=== PATIENT | female | born 1970 | race Two or more races ===

== ENCOUNTER 2019-04-02 22:56 | Inpatient (IN) | payer MEDICAID ==
[~2019-04-02] VITALS: Ht 157.5 cm; Wt 75.7 kg
[2019-04-02 23:00] VITALS: BP 116/75
[2019-04-02] MEDS ORDERED: Thiamine HCl 100 MG in D5W 55 ML IV ONE (23:00)
--- NOTE | 2019-04-02 23:00 | NUR ---
ED Nurse Note: pt brought in by [facility] from home c/c etoh intoxication, per ems report pt's called 911 because she was severely intoxicated. upon arrival noted pt drowsy unable to stay awake more than 30 sec, slurred speech noted. pt AA&ox3, gcs=15, skin warm and dry, noted dried scabs and contusion on right hip area, sinus rhythm on cardiac exercise specialist, abd round and umbilical hernia noted. will cont monitor.
--- NOTE | 2019-04-02 23:01 | NUR ---
ED Nurse Note: ERMD notified that pt is compliant and very drowsy, doesn't need restraints, pt able to tolerate iv access. will cont monitor. safety precautions in place.
[2019-04-02 23:28] LABS: BASOPHILS % (AUTO) 1.7 % (0.0-2.0); EOSINOPHILS % (AUTO) 3.1 % (0.0-3.0); HEMATOCRIT 26.5 % (37.0-47.0); HEMOGLOBIN 8.6 G/DL (12.0-16.0); LYMPHOCYTES % (AUTO) 18.4 % (20.0-45.0); MEAN CORPUSCULAR VOLUME 79 FL (80-99); MONOCYTES % (AUTO) 5.4 % (1.0-10.0); NEUTROPHILS % (AUTO) 71.4 % (45.0-75.0); PLATELET COUNT 198 K/UL (150-450); RED BLOOD COUNT 3.35 M/UL (4.20-5.40); RED CELL DISTRIBUTION WIDTH 16.6 % (11.6-14.8); WHITE BLOOD COUNT 6.4 K/UL (4.8-10.8)
[2019-04-02 23:35] LABS: INR 1.3 (0.9-1.1)
[2019-04-02 23:39] LABS: ANION GAP 9 mmol/L (5-15); BLOOD UREA NITROGEN 5 mg/dL (7-18); CALCIUM 6.5 MG/DL (8.5-10.1); CARBON DIOXIDE 21 MMOL/L (21-32); CHLORIDE 104 MMOL/L (98-107); CREATININE 0.6 MG/DL (0.55-1.30); POTASSIUM 3.8 MMOL/L (3.5-5.1); SODIUM 134 MMOL/L (136-145)
[2019-04-02 23:44] LABS: PHOSPHORUS 3.6 MG/DL (2.5-4.9)
[2019-04-02 23:49] LABS: ALANINE AMINOTRANSFERASE 26 U/L (12-78); ALBUMIN 1.2 G/DL (3.4-5.0); ALBUMIN/GLOBULIN RATIO 0.4 (1.0-2.7); ALKALINE PHOSPHATASE 426 U/L (46-116); ASPARTATE AMINO TRANSFERASE 69 U/L (15-37); BILIRUBIN,TOTAL 1.1 MG/DL (0.2-1.0); CREATINE KINASE 110 U/L (26-308)
[2019-04-02 23:51] LABS: BILIRUBIN,DIRECT 0.7 MG/DL (0.0-0.3)
[2019-04-03] VITALS (8 sets, daily range): BP systolic 99–158; BP diastolic 68–86
--- NOTE | 2019-04-03 | NUR ---
ED Nurse Note: pt void x 1, cleand and changed into new gown, pt given warm blanket for comfort.
[2019-04-03 00:02] LABS: APPEARANCE,URINE CLEAR; BILIRUBIN, URINE NEGATIVE (NEGATIVE); GLUCOSE, URINE (UA) NEGATIVE (NEGATIVE); KETONES,URINE NEGATIVE (NEGATIVE); LEUKOCYTE ESTERASE ,URINE NEGATIVE (NEGATIVE); NITRITE,URINE NEGATIVE (NEGATIVE); PH,URINE 6.5 (4.5-8.0); PROTEIN,URINE 2+ (NEGATIVE); UROBILINOGEN,URINE NORMAL MG/DL (0.0-1.0)
[2019-04-03 00:07] LABS: COLOR,URINE YELLOW
--- NOTE | 2019-04-03 00:26 | Diagnostic Imaging Report ---
EXAM: CT Head Without Intravenous Contrast CLINICAL HISTORY: ALOC TECHNIQUE: Axial computed tomography images of the head/brain without intravenous contrast. CTDI is 70 mGy and DLP is 1393 mGy-cm. One or more of the following dose reduction techniques were used: automated exposure control, adjustment of the mA and/or kV according to patient size, use of iterative reconstruction technique. COMPARISON: 02/20/2018 CT head FINDINGS: Brain: No hemorrhage or mass effect. Ventricles: No hydrocephalus. Mild cerebral volume loss. Bones/joints: Unremarkable. Soft tissues: Unremarkable. Sinuses: Unremarkable. Mastoid air cells: Clear. IMPRESSION: No acute hemorrhage, hydrocephalus, or mass effect.
--- NOTE | 2019-04-03 00:40 | Emergency Room Report ---
History of Present Illness General Chief Complaint: Alcohol Intoxication Source: EMS Present Illness HPI EMS was called by the patient's . Apparently she is been drinking tonight. She fell and hit her head. She has been less responsive. She has a history of liver cirrhosis. Accu-Chek in the field was normal. Also EKG was done that was unremarkable. She is moving all fours but is lethargic. Patient is unable to answer questions at this time. The patient was seen here February 10 after sustaining a scalp laceration after drinking alcohol. CT was negative at that time. The patient eloped after the CAT scan. Allergies: Coded Allergies: No Known Allergies (Unverified , 02/20/18) Patient History Limited by: medical condition Past Medical History: see triage record, old chart reviewed Social History: Reports: alcohol use Social History Narrative Last Menstrual Period: n/a Reviewed Nursing Documentation: PMH: Agreed; PSxH: Agreed Nursing Documentation-PMH Past Medical History: No History, Except For Hx Hypertension: Yes Review of Systems All Other Systems: limited Physical Exam Vital Signs Date Time Temp Pulse Resp B/P (MAP) Pulse Ox O2 Delivery O2 Flow Rate FiO2 04/02/19 22:51 98.4 96 18 110/67 (81) 96 Room Air Sp02 EP Interpretation: reviewed, normal General Appearance: no apparent distress, lethargic Head: normocephalic, other - See below Eyes: bilateral eye PERRL, bilateral eye abnormal EOM, bilateral eye Scleral Injection ENT: moist mucus membranes Neck: supple Respiratory: lungs clear, normal breath sounds Cardiovascular #1: regular rate, rhythm, edema - Trace bilaterally Cardiovascular #2: 2+ radial (L) Gastrointestinal: non tender, soft, decreased bowel sounds, overweight Genitourinary: no CVA tenderness Musculoskeletal: normal range of motion Neurologic: sensory intact, no Babinski, other - Positive gag, moving all 4, withdraws to painful stimulus, nystagmus Psychiatric: other - Lethargic Reflexes: 1+ knee (R), 1+ knee (L) Skin: Ecchymosis/Bruising - Right scalp, other - Intertrigo left breast Procedures Critical Care Time Critical Care Time Total Critical Care Time: 60 min bedside evaluation and treatment excludes procedures (EKG). Reason for critical care: Stupor, non-STEMI, right pleural effusion and possible infiltrate, head injury Possible complications: hypotension, hypertension, CO, shock, arrhythmias, metabolic acidosis, end organ damage, respiratory failure. Interventions: Repeated neurologic evaluations, evaluation and treatment of non- STEMI, antibiotics for right lung abnormality Course: Patient presented with lethargy with evidence of head injury and possible alcohol ingestion with a history of cirrhosis. Evaluation with CT of the head excluded bleed. Thiamine is ordered. Lab called with positive troponin. Aspirin administered. Due to vital signs and abnormal INR other treatment withheld. Repeat evaluations revealed improving mentation. Abnormal x-ray led to blood cultures and administration of antibiotics. Patient admitted to stepdown unit. Consultations: nursing staff, EMS, admitting physician Performed by: Dr. Vazquez Tolerated well condition = serious Medical Decision Making Diagnostic Impression: Primary Impression: Altered level of consciousness Additional Impressions: Elevated troponin Right pulmonary infiltrate on CXR Anemia Qualified Codes: D64.9 - Anemia, unspecified Acute alcoholic intoxication Qualified Codes: F10.929 - Alcohol use, unspecified with intoxication, unspecified Serum ammonia increased Intertrigo Head contusion Qualified Codes: S00.03XA - Contusion of scalp, initial encounter Pleural effusion, right History of cirrhosis Hypocalcemia Hypomagnesemia ER Course Patient presents with stupor and lethargy with alleged alcohol ingestion and history of cirrhosis. Is also evidence of a head injury. Patient will be evaluated with EKG, chest x-ray and labs. Also CT the head will be performed. Patient is placed on a threat monitoring analyst. None behavioral restraints are ordered as she is not responsible at this time for her behavior and is high fall risk. Thiamine is ordered. EKG without injury. Prolonged QT interval. No acute changes. CXR with R effusion/infiltrate. Labs with normal white count but anemia. Platelet count is normal. INR slightly prolonged at 1.3. Blood alcohol is 447. Lab called with + troponin (0.13). Aspirin ordered. Unable to give nitrates or beta blockers due to low BP. Also heparin withheld due to increased INR. BC and antibiotic ordered. Type and Rh ordered as anemia. Patient more awake but still slurred and lethargic. Ammonia slightly elevated. Due to the risk of aspiration lactulose is withheld the moment. The patient may be at risk for alcohol withdrawal and DTs. Consideration of replacement of magnesium and checking ionized calcium in the future. Patient admitted to stepdown unit for the positive troponin. There is no evidence of STEMI at this time. Her mentation is improved but she still is lethargic. Laboratory Tests Test 04/02/19 23:05 04/03/19 01:30 White Blood Count 6.4 K/UL (4.8-10.8) Red Blood Count 3.35 M/UL (4.20-5.40) L Hemoglobin 8.6 G/DL (12.0-16.0) L Hematocrit 26.5 % (37.0-47.0) L Mean Corpuscular Volume 79 FL (80-99) L Mean Corpuscular Hemoglobin 25.7 PG (27.0-31.0) L Mean Corpuscular Hemoglobin Concent 32.5 G/DL (32.0-36.0) Red Cell Distribution Width 16.6 % (11.6-14.8) H Platelet Count 198 K/UL (150-450) Mean Platelet Volume 5.7 FL (6.5-10.1) L Neutrophils (%) (Auto) 71.4 % (45.0-75.0) Lymphocytes (%) (Auto) 18.4 % (20.0-45.0) L Monocytes (%) (Auto) 5.4 % (1.0-10.0) Eosinophils (%) (Auto) 3.1 % (0.0-3.0) H Basophils (%) (Auto) 1.7 % (0.0-2.0) Prothrombin Time 14.1 SEC (9.30-11.50) H Prothrombin Time INR 1.3 (0.9-1.1) H PTT 26 SEC (23-33) Urine Color Yellow Urine Appearance Clear Urine pH 6.5 (4.5-8.0) Urine Specific [place] 1.010 (1.005-1.035) Urine Protein 2+ (NEGATIVE) H Urine Glucose (UA) Negative (NEGATIVE) Urine Ketones Negative (NEGATIVE) Urine Blood 2+ (NEGATIVE) H Urine Nitrite Negative (NEGATIVE) Urine Bilirubin Negative (NEGATIVE) Urine Urobilinogen Normal MG/DL (0.0-1.0) Urine Leukocyte Esterase Negative (NEGATIVE) Urine RBC 2-4 /HPF (0 - 2) H Urine WBC 0-2 /HPF (0 - 2) Urine Squamous Epithelial Cells Few /LPF (NONE/OCC) Urine Bacteria None /HPF (NONE) Sodium Level 134 MMOL/L (136-145) L Potassium Level 3.8 MMOL/L (3.5-5.1) Chloride Level 104 MMOL/L (98-107) Carbon Dioxide Level 21 MMOL/L (21-32) Anion Gap 9 mmol/L (5-15) Blood Urea Nitrogen 5 mg/dL (7-18) L Creatinine 0.6 MG/DL (0.55-1.30) Estimate Glomerular Filtration Rate > 60 mL/min (>60) Glucose Level 108 MG/DL (74-106) H Calcium Level 6.5 MG/DL (8.5-10.1) L Phosphorus Level 3.6 MG/DL (2.5-4.9) Magnesium Level 1.4 MG/DL (1.8-2.4) L Total Bilirubin 1.1 MG/DL (0.2-1.0) H Direct Bilirubin 0.7 MG/DL (0.0-0.3) H Aspartate Amino Transferase (AST) 69 U/L (15-37) H Alanine Aminotransferase (ALT) 26 U/L (12-78) Alkaline Phosphatase 426 U/L (46-116) H Total Creatine Kinase 110 U/L (26-308) Troponin I 0.130 ng/mL (0.000-0.056) Total Protein 4.5 G/DL (6.4-8.2) L Albumin 1.2 G/DL (3.4-5.0) L Globulin 3.3 g/dL Albumin/Globulin Ratio 0.4 (1.0-2.7) L Lipase 285 U/L (73-393) Salicylates Level < 0.2 ug/mL (2.8-20) L Urine Opiates Screen Negative (NEGATIVE) Acetaminophen Level 5 MCG/ML (10-30) L Urine Barbiturates Screen Negative (NEGATIVE) Phencyclidine (PCP) Screen Negative (NEGATIVE) Urine Amphetamines Screen Negative (NEGATIVE) Urine Benzodiazepines Screen Negative (NEGATIVE) Urine Cocaine Screen Negative (NEGATIVE) Urine Marijuana (THC) Screen Negative (NEGATIVE) Serum Alcohol 447 mg/dL Ammonia 47 umol/L (11-32) H EKG Diagnostic Results Rate: normal Rhythm: NSR ST Segments: no acute changes - Increased QT interval of 495 ms ASA given to the pt in ED: Yes Rhythm Strip Diag. Results EP Interpretation: yes Rhythm: NSR, no PVC's, no ectopy Chest X-Ray Diagnostic Results Chest X-Ray Diagnostic Results : Chest X-Ray Ordered: Yes # of Views/Limited/Complete: 1 View Indication: Other EP Interpretation: Yes Interpretation: no pneumothorax, other - R effusion vs infiltrate CT/MRI/US Diagnostic Results CT/MRI/US Diagnostic Results : Imaging Test Ordered: head Impression no bleed Last Vital Signs Date Time Temp Pulse Resp B/P (MAP) Pulse Ox O2 Delivery O2 Flow Rate FiO2 04/03/19 03:00 98.7 82 18 119/68 95 Room Air Status: improved Disposition: ADMITTED INPATIENT Condition: Serious Referrals: NOT CHOSEN IPA/,REFERRING (PCP) Marcus Vazquez MD Apr 03, 2019 00:40
[2019-04-03] MEDS ORDERED: UNOBMED (00:42)
--- NOTE | 2019-04-03 00:43 | Diagnostic Imaging Report ---
EXAM: XR Chest, 1 View CLINICAL HISTORY: ALOC TECHNIQUE: Frontal view of the chest. COMPARISON: No relevant prior studies available. IMPRESSION: Mild cardiomegaly. Moderate right pleural effusion. Increased opacity in the right lung, possibly infection, edema, or atelectasis.
[2019-04-03] MEDS ORDERED: Piperacillin/Tazobactam 3.375 GM in NS 110 ML IVPB ONE (00:45)
--- NOTE | 2019-04-03 01:20 | NUR ---
ED Nurse Note: pt sleeping at this time, vss, sinus rhythm on secured entrance monitor, resp even and unlabored on RA, will cont monitor.
--- NOTE | 2019-04-03 03:10 | NUR ---
ED Nurse Note: report given to GLORIA Garcia from SDU.
--- NOTE | 2019-04-03 03:30 | NUR ---
ED Nurse Note: pt transferred to SDU, all belongings sent w/ pt w/ belonging list, care endorsed to GLORIA Garcia and SDU staff, pt iv intact and patent, vss, sinus rhythm on media monitor.
--- NOTE | 2019-04-03 03:55 | NUR ---
Face sheet, dictation and clinicals faxed to Aleida at [facility] at [phone] as requested.
[2019-04-03] MEDS ORDERED: LORazepam Inj 2mg/ml 1ml IV PRN (04:00)
[2019-04-03] MEDS ORDERED: Morphine Sulfate 2mg/ml Inj(IV/IM USE ONLY) IVP PRN ×2 (04:00→07:15)
--- NOTE | 2019-04-03 04:00 | NUR ---
NURSE NOTES: Received report from Savannah CASTRO. Patient admitted from ER via gurney accompanied by RN and vending service technician.originally from home under the care of Dr. Axel Lock admitting diagnosis of ETOH, ALOC, Increase troponin. Patient lethargic, easily arousable to verbal and tactile stimuli. Alert oriented to name. No SOB oxygen saturation 96% Room air. Body assessment done noted with swollen lower legs with +2 pitting edema, generalized skin redness, rashes with dry scab, left breast with redness and rashes, abdominal folds and groins area redness, per patient she have psoriasis. Per patient she fell from home 3 months ago obtained right moore skin discoloration with bump on right moore denies any pain or discomfort. Abdomen distended with bulging navel. no s/s of acute distress noted. Instructed patient to use call light for assistance. bed alarm on. bed locked and in low position. Will continue plan of care.
--- NOTE | 2019-04-03 04:05 | NUR ---
NURSE NOTES: Dr Axel Lock gave orders noted and carried. will call patient in am regarding patient medication list at home patient can't remember what medication she's taking.
[2019-04-03 04:23] LABS: BASOPHILS % (AUTO) 1.3 % (0.0-2.0); EOSINOPHILS % (AUTO) 1.1 % (0.0-3.0); HEMATOCRIT 27.9 % (37.0-47.0); HEMOGLOBIN 8.9 G/DL (12.0-16.0); LYMPHOCYTES % (AUTO) 21.3 % (20.0-45.0); MEAN CORPUSCULAR VOLUME 80 FL (80-99); MONOCYTES % (AUTO) 6.5 % (1.0-10.0); NEUTROPHILS % (AUTO) 69.7 % (45.0-75.0); PLATELET COUNT 215 K/UL (150-450); RED BLOOD COUNT 3.48 M/UL (4.20-5.40); RED CELL DISTRIBUTION WIDTH 16.2 % (11.6-14.8); WHITE BLOOD COUNT 6.3 K/UL (4.8-10.8)
[2019-04-03] MEDS ORDERED: D5 1/2NS 1,000 ML IV SCH (04:30)
[2019-04-03 05:28] LABS: ANION GAP 8 mmol/L (5-15); BLOOD UREA NITROGEN 5 mg/dL (7-18); CALCIUM 6.6 MG/DL (8.5-10.1); CARBON DIOXIDE 21 MMOL/L (21-32); CHLORIDE 103 MMOL/L (98-107); CREATININE 0.6 MG/DL (0.55-1.30); POTASSIUM 3.8 MMOL/L (3.5-5.1); SODIUM 132 MMOL/L (136-145)
[2019-04-03] MEDS ORDERED: Miralax 17gm pkt ORAL PRN (07:15)
[2019-04-03] MEDS ORDERED: Nitroglycerin Subl 0.4mg tab SL PRN (07:15)
--- NOTE | 2019-04-03 07:30 | NUR ---
NURSE NOTES: Received report from Vitaly Zuniga RN. Patient asleep in bed, arousable to shaking, confused. On room air, respirations even and unlabored. Right wrist 20g IV site infusing D51/2NS @ 60 cc/hr, asymptomatic. Bed locked in lowest position with side rails up x 3. All needs attended to. Call light within reach. Will continue to monitor.
--- NOTE | 2019-04-03 07:31 | NUR ---
HAND-OFF: Report given to Zuly CASTRO. Spoke with Aleksandar Rob patient to bring medication list at home. endorsed to am nurse.
[2019-04-03] MEDS ORDERED: Phytonadione 10 MG in D5W 55 ML IVPB SCH (08:00)
[2019-04-03] MEDS: D5 1/2NS 1,000 ML IV SCH ×2 (08:18→20:19)
--- NOTE | 2019-04-03 08:20 | Diagnostic Imaging Report ---
EXAM: XR Right Tibia and Fibula, 2 Views CLINICAL HISTORY: FALL TECHNIQUE: Frontal and lateral views of the right tibia and fibula. COMPARISON: No relevant prior studies available. FINDINGS: Bones/joints: Unremarkable. No acute fracture. No dislocation. Soft tissues: Unremarkable. No radiopaque foreign body. IMPRESSION: Normal right tibia and fibula x-rays.
--- NOTE | 2019-04-03 08:39 | General Progress Note ---
Assessment/Plan Assessment/Plan: Assessment - alcoholic liver disease - abnormal LFT, r/o HCC or obstruction - hepatic encephalopathy - anemia - abdominal distention, presumed ascites Recommendations - lactulose - may need NGT - CT abd /pelvis - PPI - check AFP - d/c BDZ - minimize tylenol - Abx - may need paracentesis Subjective Allergies: Coded Allergies: No Known Allergies (Unverified , 02/20/18) Objective Last 24 Hour Vital Signs Date Time Temp Pulse Resp B/P (MAP) Pulse Ox O2 Delivery O2 Flow Rate FiO2 04/03/19 04:10 Room Air 04/03/19 03:30 98.5 88 18 110/86 98 Room Air 04/03/19 03:00 98.7 82 18 119/68 95 Room Air 04/03/19 02:00 98.9 86 18 110/86 96 Room Air 04/03/19 01:00 98.7 89 18 99/74 100 Room Air 04/03/19 00:00 98.6 89 18 99/74 98 Room Air 04/02/19 23:00 98.4 86 18 116/75 96 Room Air 04/02/19 23:00 86 18 Room Air 04/02/19 22:51 98.4 96 18 110/67 (81) 96 Room Air Intake and Output 04/02/19 04/03/19 19:00 07:00 Intake Total 60 ml Balance 60 ml Intake IV Total 60 ml # Voids 2 # Bowel Movements 2 Laboratory Tests 04/02/19 23:05: White Blood Count 6.4, Red Blood Count 3.35L, Hemoglobin 8.6L, Hematocrit 26.5L , Mean Corpuscular Volume 79L, Mean Corpuscular Hemoglobin 25.7L, Mean Corpuscular Hemoglobin Concent 32.5, Red Cell Distribution Width 16.6H, Platelet Count 198, Mean Platelet Volume 5.7L, Neutrophils (%) (Auto) 71.4, Lymphocytes (%) (Auto) 18.4L, Monocytes (%) (Auto) 5.4, Eosinophils (%) (Auto) 3.1H, Basophils (%) (Auto) 1.7, Prothrombin Time 14.1H, Prothromb Time International Ratio 1.3H, Activated Partial Thromboplast Time 26, Urine Color Yellow, Urine Appearance Clear, Urine pH 6.5, Urine Specific [place] 1.010, Urine Protein 2+H, Urine Glucose (UA) Negative, Urine Ketones Negative, Urine Blood 2+H, Urine Nitrite Negative, Urine Bilirubin Negative, Urine Urobilinogen Normal, Urine Leukocyte Esterase Negative, Urine RBC 2-4H, Urine WBC 0-2, Urine Squamous Epithelial Cells Few, Urine Bacteria None, Sodium Level 134L, Potassium Level 3.8, Chloride Level 104, Carbon Dioxide Level 21, Anion Gap 9, Blood Urea Nitrogen 5L, Creatinine 0.6, Estimat Glomerular Filtration Rate > 60 , Glucose Level 108H, Calcium Level 6.5L, Phosphorus Level 3.6, Magnesium Level 1.4L, Total Bilirubin 1.1H, Direct Bilirubin 0.7H, Aspartate Amino Transf (AST/ SGOT) 69H, Alanine Aminotransferase (ALT/SGPT) 26, Alkaline Phosphatase 426H, Total Creatine Kinase 110, Troponin I 0.130H, Total Protein 4.5L, Albumin 1.2L, Globulin 3.3, Albumin/Globulin Ratio 0.4L, Lipase 285, Salicylates Level < 0.2L , Urine Opiates Screen Negative, Acetaminophen Level 5L, Urine Barbiturates Screen Negative, Phencyclidine (PCP) Screen Negative, Urine Amphetamines Screen Negative, Urine Benzodiazepines Screen Negative, Urine Cocaine Screen Negative, Urine Marijuana (THC) Screen Negative, Serum Alcohol 447 04/03/19 01:30: Ammonia 47H 04/03/19 04:10: White Blood Count 6.3, Red Blood Count 3.48L, Hemoglobin 8.9L, Hematocrit 27.9L , Mean Corpuscular Volume 80, Mean Corpuscular Hemoglobin 25.5L, Mean Corpuscular Hemoglobin Concent 31.7L, Red Cell Distribution Width 16.2H, Platelet Count 215, Mean Platelet Volume 5.8L, Neutrophils (%) (Auto) 69.7, Lymphocytes (%) (Auto) 21.3, Monocytes (%) (Auto) 6.5, Eosinophils (%) (Auto) 1.1, Basophils (%) (Auto) 1.3, Sodium Level 132L, Potassium Level 3.8, Chloride Level 103, Carbon Dioxide Level 21, Anion Gap 8, Blood Urea Nitrogen 5L, Creatinine 0.6, Estimat Glomerular Filtration Rate > 60, Glucose Level 107H, Calcium Level 6.6L, Troponin I 0.132H Height (Feet): 5 Height (Inches): 2.00 Weight (Pounds): 167 Tabitha Sandoval MD Apr 03, 2019 08:39
[2019-04-03] MEDS ORDERED: Isovue-300 100ml vial INJ PRN (08:45)
[2019-04-03] MEDS ORDERED: Pantoprazole Inj IVP SCH (09:00)
--- NOTE | 2019-04-03 09:00 | NUR ---
NURSE NOTES: at bedside, no med list available.
[2019-04-03] MEDS: Piperacillin/Tazobactam 3.375 GM in NS 110 ML IVPB SCH ×2 (10:54→17:00)
[2019-04-03] MEDS: Lactulose 200 GM in Water Sterile For Irrig 1000ml 700 ML IRRIG SCH ×3 (10:54→21:24)
--- NOTE | 2019-04-03 13:00 | History and Physical Report ---
DATE OF ADMISSION: 04/03/2019 TIME SEEN: 10 a.m. CONSULTANTS: 1. Sebas Schneider M.D. 2. Rosemary Wilson M.D. 3. Renato Garvey M.D. 4. Marty Cerna M.D. CHIEF COMPLAINT: Alcohol abuse, cirrhosis, altered mental status, elevated troponin, body rash. BRIEF HISTORY: This is a 48-year-old female, presented to [facility] last night with history of alcohol ingestion and intoxication, very lethargic. The patient was diagnosed as above, slightly elevated troponin, admitted to [facility] for further care. Currently, sedated, lethargic in bed, nonverbal. PAST MEDICAL HISTORY: Includes altered level of consciousness, cirrhosis, alcohol intoxication. PAST SURGICAL HISTORY: Unknown. MEDICATIONS: Include lactulose, pantoprazole, Zosyn, IV fluid, morphine, diphenhydramine, Zofran, and lorazepam. ALLERGIES: Denies. SOCIAL HISTORY: Unable to obtain secondary to the patient's condition. REVIEW OF SYSTEMS: Unavailable. PHYSICAL EXAMINATION: GENERAL: Lethargic, sedated in bed, nonverbal. VITAL SIGNS: Temperature is 98 degrees, pulse 69, respirations 18, blood pressure 132/82. CARDIOVASCULAR: No murmur. LUNGS: Distant and clear. ABDOMEN: Bowel sounds positive. Nontender. Nondistended. EXTREMITIES: No cyanosis, clubbing, or edema. NEUROLOGIC: The patient is flaccid in bed, not following directions. LABORATORY AND DIAGNOSTIC DATA: Labs at this time show hemoglobin and hematocrit 8.9/27, otherwise CBC is normal. BMP shows sodium 132, glucose 107, calcium 6.6. BNP is . Ammonia level 47. INR 1.3, PTT is 26. Urine tox is alcohol 447, otherwise negative. Urinalysis, 2+ blood. ASSESSMENT: 1. Alcohol abuse, intoxication. 2. Cirrhosis. 3. Elevated troponin. 4. Body rash. 5. Anemia. PLAN: 1. ID followup. 2. Antibiotics per Infectious Disease. 3. Detox. 4. Dietary followup. 5. GI followup. 6. PT and dietary evaluation. 7. CBC and BMP in the morning. Axel Lock D.O. DR: VIVIENNE JOB#: [id number] CC:
--- NOTE | 2019-04-03 14:31 | Diagnostic Imaging Report ---
EXAM: US Duplex Bilateral Lower Extremity Veins CLINICAL HISTORY: DVT TECHNIQUE: Real-time duplex ultrasound scan of the bilateral lower extremity veins integrating B-mode two-dimensional vascular structure, Doppler spectral analysis, color flow Doppler imaging and compression. COMPARISON: No relevant prior studies available. FINDINGS: Right deep veins: Unremarkable. No DVT in the right common femoral, femoral, proximal deep femoral or popliteal veins. The veins demonstrate normal color flow, are normally compressible, with normal phasic flow and/or augmentation response. Right superficial veins: Unremarkable. No thrombus in the visualized right great saphenous vein. Left deep veins: Unremarkable. No DVT in the left common femoral, femoral, proximal deep femoral or popliteal veins. The veins demonstrate normal color flow, are normally compressible, with normal phasic flow and/or augmentation response. Left superficial veins: Unremarkable. No thrombus in the visualized left great saphenous vein. Soft tissues: No acute findings. No popliteal cyst. IMPRESSION: Normal bilateral lower extremity duplex venous ultrasound.
--- NOTE | 2019-04-03 15:15 | Cardiology Report ---
APPROVED REPORT EKG Measurement Heart [id number] ND 152P-3 [id number] Normal sinus rhythm Prolonged QT Abnormal ECG
--- NOTE | 2019-04-03 15:54 | Consultation ---
History of Present Illness General Date patient seen: Apr 04, 2019 Chief Complaint: Alcohol Intoxication Present Illness HPI 48 year old female with hx of ETOH abuse, brought in by paramedics because she fell and hit her head. In Er her ETOH level was > 400. Her troionin was postiive and dshe is admitted to [facility]. She has a history of liver cirrhosis. Patient is unable to answer questions at this time. Allergies: Coded Allergies: No Known Allergies (Unverified , 02/20/18) Medication History Miscellaneous Medications Unable to Obtain Medications (Unable To Obtain Meds), (Reported) Patient History Healthcare decision maker Resuscitation status Full Code Advanced Directive on File No Review of Systems All Other Systems: negative except mentioned in HPI Physical Exam General Appearance: WD/WN, no apparent distress, mild distress HEENT: normocephalic, atraumatic Neck: non-tender, normal alignment Respiratory/Chest: lungs clear Breasts: no masses Cardiovascular/Chest: normal peripheral pulses Abdomen: normal bowel sounds, non tender Genitourinary/Rectal: normal genital exam, normal rectal exam Last 24 Hour Vital Signs Date Time Temp Pulse Resp B/P (MAP) Pulse Ox O2 Delivery O2 Flow Rate FiO2 04/03/19 12:00 101 04/03/19 12:00 98.3 93 18 129/79 (96) 97 04/03/19 12:00 Room Air 04/03/19 08:00 98.6 69 18 138/82 (100) 92 04/03/19 08:00 90 04/03/19 08:00 Room Air 04/03/19 04:10 Room Air 04/03/19 03:30 98.5 88 18 110/86 98 Room Air 04/03/19 03:00 98.7 82 18 119/68 95 Room Air 04/03/19 02:00 98.9 86 18 110/86 96 Room Air 04/03/19 01:00 98.7 89 18 99/74 100 Room Air 04/03/19 00:00 98.6 89 18 99/74 98 Room Air 04/02/19 23:00 98.4 86 18 116/75 96 Room Air 04/02/19 23:00 86 18 Room Air 04/02/19 22:51 98.4 96 18 110/67 (81) 96 Room Air Intake and Output 04/02/19 04/03/19 19:00 07:00 Intake Total 60 ml Balance 60 ml Intake IV Total 60 ml # Voids 2 # Bowel Movements 2 Laboratory Tests Test 04/02/19 23:05 04/03/19 01:30 04/03/19 04:10 04/03/19 11:45 White Blood Count 6.4 K/UL (4.8-10.8) 6.3 K/UL (4.8-10.8) Red Blood Count 3.35 M/UL (4.20-5.40) L 3.48 M/UL (4.20-5.40) L Hemoglobin 8.6 G/DL (12.0-16.0) L 8.9 G/DL (12.0-16.0) L Hematocrit 26.5 % (37.0-47.0) L 27.9 % (37.0-47.0) L Mean Corpuscular Volume 79 FL (80-99) L 80 FL (80-99) Mean Corpuscular Hemoglobin 25.7 PG (27.0-31.0) L 25.5 PG (27.0-31.0) L Mean Corpuscular Hemoglobin Concent 32.5 G/DL (32.0-36.0) 31.7 G/DL (32.0-36.0) L Red Cell Distribution Width 16.6 % (11.6-14.8) H 16.2 % (11.6-14.8) H Platelet Count 198 K/UL (150-450) 215 K/UL (150-450) Mean Platelet Volume 5.7 FL (6.5-10.1) L 5.8 FL (6.5-10.1) L Neutrophils (%) (Auto) 71.4 % (45.0-75.0) 69.7 % (45.0-75.0) Lymphocytes (%) (Auto) 18.4 % (20.0-45.0) L 21.3 % (20.0-45.0) Monocytes (%) (Auto) 5.4 % (1.0-10.0) 6.5 % (1.0-10.0) Eosinophils (%) (Auto) 3.1 % (0.0-3.0) H 1.1 % (0.0-3.0) Basophils (%) (Auto) 1.7 % (0.0-2.0) 1.3 % (0.0-2.0) Prothrombin Time 14.1 SEC (9.30-11.50) H Prothromb Time International Ratio 1.3 (0.9-1.1) H Activated Partial Thromboplast Time 26 SEC (23-33) Urine Color Yellow Urine Appearance Clear Urine pH 6.5 (4.5-8.0) Urine Specific [place] 1.010 (1.005-1.035) Urine Protein 2+ (NEGATIVE) H Urine Glucose (UA) Negative (NEGATIVE) Urine Ketones Negative (NEGATIVE) Urine Blood 2+ (NEGATIVE) H Urine Nitrite Negative (NEGATIVE) Urine Bilirubin Negative (NEGATIVE) Urine Urobilinogen Normal MG/DL (0.0-1.0) Urine Leukocyte Esterase Negative (NEGATIVE) Urine RBC 2-4 /HPF (0 - 2) H Urine WBC 0-2 /HPF (0 - 2) Urine Squamous Epithelial Cells Few /LPF (NONE/OCC) Urine Bacteria None /HPF (NONE) Sodium Level 134 MMOL/L (136-145) L 132 MMOL/L (136-145) L Potassium Level 3.8 MMOL/L (3.5-5.1) 3.8 MMOL/L (3.5-5.1) Chloride Level 104 MMOL/L (98-107) 103 MMOL/L (98-107) Carbon Dioxide Level 21 MMOL/L (21-32) 21 MMOL/L (21-32) Anion Gap 9 mmol/L (5-15) 8 mmol/L (5-15) Blood Urea Nitrogen 5 mg/dL (7-18) L 5 mg/dL (7-18) L Creatinine 0.6 MG/DL (0.55-1.30) 0.6 MG/DL (0.55-1.30) Estimat Glomerular Filtration Rate > 60 mL/min (>60) > 60 mL/min (>60) Glucose Level 108 MG/DL (74-106) H 107 MG/DL (74-106) H Calcium Level 6.5 MG/DL (8.5-10.1) L 6.6 MG/DL (8.5-10.1) L Phosphorus Level 3.6 MG/DL (2.5-4.9) Magnesium Level 1.4 MG/DL (1.8-2.4) L Total Bilirubin 1.1 MG/DL (0.2-1.0) H Direct Bilirubin 0.7 MG/DL (0.0-0.3) H Aspartate Amino Transf (AST/SGOT) 69 U/L (15-37) H Alanine Aminotransferase (ALT/SGPT) 26 U/L (12-78) Alkaline Phosphatase 426 U/L (46-116) H Total Creatine Kinase 110 U/L (26-308) Troponin I 0.130 ng/mL (0.000-0.056) 0.132 ng/mL (0.000-0.056) 0.115 ng/mL (0.000-0.056) Total Protein 4.5 G/DL (6.4-8.2) L Albumin 1.2 G/DL (3.4-5.0) L Globulin 3.3 g/dL Albumin/Globulin Ratio 0.4 (1.0-2.7) L Lipase 285 U/L (73-393) Salicylates Level < 0.2 ug/mL (2.8-20) L Urine Opiates Screen Negative (NEGATIVE) Acetaminophen Level 5 MCG/ML (10-30) L Urine Barbiturates Screen Negative (NEGATIVE) Phencyclidine (PCP) Screen Negative (NEGATIVE) Urine Amphetamines Screen Negative (NEGATIVE) Urine Benzodiazepines Screen Negative (NEGATIVE) Urine Cocaine Screen Negative (NEGATIVE) Urine Marijuana (THC) Screen Negative (NEGATIVE) Serum Alcohol 447 mg/dL Ammonia 47 umol/L (11-32) H Height (Feet): 5 Height (Inches): 2.00 Weight (Pounds): 167 Medications Current Medications Medications (Trade) Dose Ordered Sig/Rita Route PRN Reason Start Time Stop Time Status Last Admin Dose Admin Acetaminophen (Tylenol) 650 mg Q12H PRN ORAL fever (T>100.5F) 04/03/19 08:45 05/03/19 08:44 Barium Sulfate (Readi-Cat 2) 450 ml NOW PRN ORAL Radiology Procedure 04/03/19 08:45 04/05/19 08:31 Dextrose (Dextrose 50%) 25 ml Q30MIN PRN IV Hypoglycemia 04/03/19 07:15 05/03/19 07:14 Dextrose (Dextrose 50%) 50 ml Q30MIN PRN IV Hypoglycemia 04/03/19 07:15 05/03/19 07:14 Dextrose/Sodium Chloride 1,000 ml @ 75 mls/hr [id number] IV 04/03/19 08:00 05/03/19 07:59 04/03/19 08:18 Diphenhydramine HCl (Benadryl) 25 mg Q6H PRN ORAL Itching/Pruritis 04/03/19 07:15 05/03/19 07:14 Iopamidol (Isovue-300 100ml) 100 ml NOW PRN INJ Radiology Procedure 04/03/19 08:45 04/05/19 08:44 Lactulose 200 gm/ Sterile Water 125 ml @ 0 mls/hr Q6H IRRIG 04/03/19 10:00 04/05/19 09:59 04/03/19 10:54 Morphine Sulfate (Morphine Sulfate) 2 mg EVERY 4 HOURS PRN IVP severe Pain (Pain Scale 7-10) 04/03/19 07:15 04/10/19 07:14 Morphine Sulfate (Morphine Sulfate) 2 mg Q4H PRN IVP For Pain 04/03/19 04:00 04/10/19 03:59 Nitroglycerin (Ntg) 0.4 mg Q5M X 3 DOSES PRN SL Prn Chest Pain 04/03/19 07:15 05/03/19 07:14 Ondansetron HCl (Zofran) 4 mg Q6H PRN IVP Nausea & Vomiting 04/03/19 07:15 05/03/19 07:14 Pantoprazole (Protonix) 40 mg DAILY IVP 04/03/19 09:00 05/03/19 08:59 04/03/19 09:25 Piperacillin Sod/ Tazobactam Sod 3.375 gm/Sodium Chloride 110 ml @ 27.5 mls/hr Q8HR@0100,0900,1700 IVPB 04/03/19 09:00 04/10/19 08:59 04/03/19 10:54 Polyethylene Glycol (Miralax) 17 gm HSPRN PRN ORAL Constipation 04/03/19 07:15 05/03/19 07:14 Assessment/Plan Problem List: (1) History of cirrhosis ICD Codes: Z87.19 - Personal history of other diseases of the digestive system SNOMED: 424036347 (2) Acute alcoholic intoxication ICD Codes: F10.929 - Alcohol use, unspecified with intoxication, unspecified SNOMED: 58790880 Qualifiers: Qualified Codes: F10.929 - Alcohol use, unspecified with intoxication, unspecified (3) Altered level of consciousness ICD Codes: R40.4 - Transient alteration of awareness SNOMED: 7381755, 587705981 Assessment/Plan: symptomatic treatment iv fluids ativan Rosemary Camara MD Apr 03, 2019 15:54
[2019-04-03] MEDS ORDERED: NS 275ml ONE (16:43)
[2019-04-03] MEDS ORDERED: 1/2 NS 1000ml IV ONE (16:43)
[2019-04-03] MEDS ORDERED: Tubing IV Secondary IV ONE (16:43)
--- NOTE | 2019-04-03 19:05 | NUR ---
HAND-OFF: Report given to Cornelia Lennon RN.
--- NOTE | 2019-04-03 19:15 | NUR ---
NURSE NOTES: Received patient from GLORIA Caruso. Will continue plan of care.
--- NOTE | 2019-04-03 19:24 | Cardiac Electrophysiology PN ---
Subjective Subjective [id number] Objective Last 24 Hour Vital Signs Date Time Temp Pulse Resp B/P (MAP) Pulse Ox O2 Delivery O2 Flow Rate FiO2 04/03/19 16:00 Room Air 04/03/19 16:00 97.8 80 18 132/83 (99) 93 04/03/19 15:20 101 04/03/19 12:00 101 04/03/19 12:00 98.3 93 18 129/79 (96) 97 04/03/19 12:00 Room Air 04/03/19 08:00 98.6 69 18 138/82 (100) 92 04/03/19 08:00 90 04/03/19 08:00 Room Air 04/03/19 04:10 Room Air 04/03/19 03:30 98.5 88 18 110/86 98 Room Air 04/03/19 03:00 98.7 82 18 119/68 95 Room Air 04/03/19 02:00 98.9 86 18 110/86 96 Room Air 04/03/19 01:00 98.7 89 18 99/74 100 Room Air 04/03/19 00:00 98.6 89 18 99/74 98 Room Air 04/02/19 23:00 98.4 86 18 116/75 96 Room Air 04/02/19 23:00 86 18 Room Air 04/02/19 22:51 98.4 96 18 110/67 (81) 96 Room Air Intake and Output 04/02/19 04/03/19 18:59 06:59 Intake Total 60 ml Balance 60 ml IV Total 60 ml # Voids 2 # Bowel Movements 2 Laboratory Tests Test 04/02/19 23:05 04/03/19 01:30 04/03/19 04:10 04/03/19 11:45 White Blood Count 6.4 K/UL (4.8-10.8) 6.3 K/UL (4.8-10.8) Red Blood Count 3.35 M/UL (4.20-5.40) L 3.48 M/UL (4.20-5.40) L Hemoglobin 8.6 G/DL (12.0-16.0) L 8.9 G/DL (12.0-16.0) L Hematocrit 26.5 % (37.0-47.0) L 27.9 % (37.0-47.0) L Mean Corpuscular Volume 79 FL (80-99) L 80 FL (80-99) Mean Corpuscular Hemoglobin 25.7 PG (27.0-31.0) L 25.5 PG (27.0-31.0) L Mean Corpuscular Hemoglobin Concent 32.5 G/DL (32.0-36.0) 31.7 G/DL (32.0-36.0) L Red Cell Distribution Width 16.6 % (11.6-14.8) H 16.2 % (11.6-14.8) H Platelet Count 198 K/UL (150-450) 215 K/UL (150-450) Mean Platelet Volume 5.7 FL (6.5-10.1) L 5.8 FL (6.5-10.1) L Neutrophils (%) (Auto) 71.4 % (45.0-75.0) 69.7 % (45.0-75.0) Lymphocytes (%) (Auto) 18.4 % (20.0-45.0) L 21.3 % (20.0-45.0) Monocytes (%) (Auto) 5.4 % (1.0-10.0) 6.5 % (1.0-10.0) Eosinophils (%) (Auto) 3.1 % (0.0-3.0) H 1.1 % (0.0-3.0) Basophils (%) (Auto) 1.7 % (0.0-2.0) 1.3 % (0.0-2.0) Prothrombin Time 14.1 SEC (9.30-11.50) H Prothromb Time International Ratio 1.3 (0.9-1.1) H Activated Partial Thromboplast Time 26 SEC (23-33) Urine Color Yellow Urine Appearance Clear Urine pH 6.5 (4.5-8.0) Urine Specific [place] 1.010 (1.005-1.035) Urine Protein 2+ (NEGATIVE) H Urine Glucose (UA) Negative (NEGATIVE) Urine Ketones Negative (NEGATIVE) Urine Blood 2+ (NEGATIVE) H Urine Nitrite Negative (NEGATIVE) Urine Bilirubin Negative (NEGATIVE) Urine Urobilinogen Normal MG/DL (0.0-1.0) Urine Leukocyte Esterase Negative (NEGATIVE) Urine RBC 2-4 /HPF (0 - 2) H Urine WBC 0-2 /HPF (0 - 2) Urine Squamous Epithelial Cells Few /LPF (NONE/OCC) Urine Bacteria None /HPF (NONE) Sodium Level 134 MMOL/L (136-145) L 132 MMOL/L (136-145) L Potassium Level 3.8 MMOL/L (3.5-5.1) 3.8 MMOL/L (3.5-5.1) Chloride Level 104 MMOL/L (98-107) 103 MMOL/L (98-107) Carbon Dioxide Level 21 MMOL/L (21-32) 21 MMOL/L (21-32) Anion Gap 9 mmol/L (5-15) 8 mmol/L (5-15) Blood Urea Nitrogen 5 mg/dL (7-18) L 5 mg/dL (7-18) L Creatinine 0.6 MG/DL (0.55-1.30) 0.6 MG/DL (0.55-1.30) Estimat Glomerular Filtration Rate > 60 mL/min (>60) > 60 mL/min (>60) Glucose Level 108 MG/DL (74-106) H 107 MG/DL (74-106) H Calcium Level 6.5 MG/DL (8.5-10.1) L 6.6 MG/DL (8.5-10.1) L Phosphorus Level 3.6 MG/DL (2.5-4.9) Magnesium Level 1.4 MG/DL (1.8-2.4) L Total Bilirubin 1.1 MG/DL (0.2-1.0) H Direct Bilirubin 0.7 MG/DL (0.0-0.3) H Aspartate Amino Transf (AST/SGOT) 69 U/L (15-37) H Alanine Aminotransferase (ALT/SGPT) 26 U/L (12-78) Alkaline Phosphatase 426 U/L (46-116) H Total Creatine Kinase 110 U/L (26-308) Troponin I 0.130 ng/mL (0.000-0.056) 0.132 ng/mL (0.000-0.056) 0.115 ng/mL (0.000-0.056) Total Protein 4.5 G/DL (6.4-8.2) L Albumin 1.2 G/DL (3.4-5.0) L Globulin 3.3 g/dL Albumin/Globulin Ratio 0.4 (1.0-2.7) L Lipase 285 U/L (73-393) Salicylates Level < 0.2 ug/mL (2.8-20) L Urine Opiates Screen Negative (NEGATIVE) Acetaminophen Level 5 MCG/ML (10-30) L Urine Barbiturates Screen Negative (NEGATIVE) Phencyclidine (PCP) Screen Negative (NEGATIVE) Urine Amphetamines Screen Negative (NEGATIVE) Urine Benzodiazepines Screen Negative (NEGATIVE) Urine Cocaine Screen Negative (NEGATIVE) Urine Marijuana (THC) Screen Negative (NEGATIVE) Serum Alcohol 447 mg/dL Ammonia 47 umol/L (11-32) H Renato Garvey MD Apr 03, 2019 19:24
--- NOTE | 2019-04-03 20:00 | Consultation ---
DATE OF CONSULTATION: 04/03/2019 CARDIOLOGY CONSULTATION CONSULTING PHYSICIAN: Renato Garvey M.D. REFERRING PHYSICIAN: Axel Lock D.O. REASON FOR CONSULTATION: Elevated troponin. HISTORY OF PRESENT ILLNESS: The patient is a 48-year-old lady from [facility], who has been drinking heavily and fell and hit her head. She also has history of liver cirrhosis. EKG was unremarkable. However, troponin was elevated. The patient was also in the hospital on February 10 after she had scalp laceration after drinking alcohol. The patient eloped after the CT scan. The patient was admitted and Cardiology consultation was obtained for further evaluation and management. REVIEW OF SYSTEMS: Review of systems was negative other than what is mentioned in the history of present illness. PAST MEDICAL HISTORY: 1. Hypertension. 2. Cirrhosis. FAMILY HISTORY: Noncontributory. SOCIAL HISTORY: She drinks alcohol heavily. Lives at home with . PHYSICAL EXAMINATION: VITAL SIGNS: Show blood pressure of 132/83, pulse 80, respirations 18, and temperature 97.8. HEAD AND NECK: Showed no JVD. LUNGS: Clear. CARDIOVASCULAR: Regular S1 and S2 with no gallop or murmur. ABDOMEN: Soft. EXTREMITIES: No pitting edema. SKIN: Diffuse plaques that looks like psoriatic lesions. LABORATORY AND DIAGNOSTIC DATA: Her EKG shows normal sinus rhythm, normal electrocardiogram. White count of 6.2, hemoglobin 8.9, hematocrit 28, and platelet count of 215. Sodium 132, potassium 3.8, BUN of 5, creatinine 0.6, and glucose of 107. Troponin was 0.130, 0.132, to 0.115. ASSESSMENT AND PLAN: 1. Troponin leak. The levels are flat and nonspecific. The patient does not have any chest pain. EKG is completely normal. Keep the patient on aspirin and beta-miguel. Get an echocardiogram. Repeat troponin in the morning. 2. 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 Further evaluation by Dr. Sandoval. 3. Altered mental status. 4. Cirrhosis of the liver. 5. Alcohol use. Thank you very much for allowing me to participate in the care of this patient. Please do not hesitate to contact me if you have any questions regarding my evaluation. Sincerely, Renato Garvey M.D. DR: Manisha JOB#: [id number] CC:
[2019-04-03] MEDS ORDERED: Metoprolol Tartrate 12.5mg TAB ORAL SCH (21:00)
--- NOTE | 2019-04-03 22:15 | Consultation ---
DATE OF CONSULTATION: 04/03/2019 GASTROENTEROLOGY CONSULTATION CONSULTING PHYSICIAN: Tabitha Sandoval M.D. CHIEF COMPLAINT: I was asked to see this patient by Dr. Axel Lock for evaluation of alcoholic cirrhosis. HISTORY OF PRESENT ILLNESS: The patient is a 48-year-old woman who is confused and unable to provide any history. She has been admitted last night with alcohol ingestion and intoxication. She is lethargic and not arousable and therefore unable to provide any history. Most of the information is only available from the chart. The patient has been admitted to [facility], and she is being carefully monitored because she has an elevated troponin. PAST MEDICAL HISTORY: History of alcoholism and cirrhosis. FAMILY HISTORY: Unavailable and unobtainable. SOCIAL HISTORY: Unavailable and unobtainable. However, the chart reports a history of alcoholism. ALLERGIES: Unobtainable. REVIEW OF SYSTEMS: Unobtainable. PHYSICAL EXAMINATION: GENERAL: Obtunded woman, seen in the [facility] unit on the monitor. HEENT: Normocephalic and atraumatic. There is no obvious icterus. NECK: Supple. CHEST: Clear to auscultation. CARDIOVASCULAR: Revealed a regular rate. ABDOMEN: Soft, but distended. There was some fluid wave. EXTREMITIES: Revealed no edema. LABORATORY DATA: Laboratory data were noted for a mild elevation of bilirubin of 1.1, alkaline phosphatase is 426, AST 69 with ALT of 26. White count is normal when the patient was admitted. Her hemoglobin was 8.9. Platelet count was normal. INR was 1.6. The patient's serum alcohol was 447 but low serum Tylenol level. ASSESSMENT: The patient presents with encephalopathy, which may be partially hepatic since she does have an elevated amylase and she has cirrhosis. In addition, however, the patient has elevated alkaline phosphatase, and therefore an intrahepatic lesion, especially hepatocellular carcinoma will have to be evaluated. PLAN: The lactulose can be administered either initially rectally or eventually perhaps by nasogastric tube to treat any component of hepatic encephalopathy. The patient should be kept NPO for now. She is at higher aspiration risk due to encephalopathy. I will order a CT scan of the abdomen and pelvis to evaluate the intra-abdominal organs, especially liver. I would avoid benzodiazepines and minimize Tylenol use in the setting. Should the CT scan confirm ascites, then paracentesis will be advisable. Antibiotics should be given at this time. Thank you for asking me to participate in the care of this patient. Tabitha Sandoval M.D. DR: CAM JOB#: [id number] CC: GARETT
[2019-04-04] VITALS: BP 137/62
[2019-04-04] MEDS: Piperacillin/Tazobactam 3.375 GM in NS 110 ML IVPB SCH (00:55)
[2019-04-04] MEDS: Lactulose 200 GM in Water Sterile For Irrig 1000ml 700 ML IRRIG SCH ×3 (03:37→16:00)
[2019-04-04 04:00] VITALS: BP 152/94
[2019-04-04 04:48] LABS: BASOPHILS % (AUTO) 1.4 % (0.0-2.0); HEMOGLOBIN 8.6 G/DL (12.0-16.0); LYMPHOCYTES % (AUTO) 12.4 % (20.0-45.0); MEAN CORPUSCULAR VOLUME 80 FL (80-99); MONOCYTES % (AUTO) 9.3 % (1.0-10.0); NEUTROPHILS % (AUTO) 75.8 % (45.0-75.0); PLATELET COUNT 200 K/UL (150-450); RED BLOOD COUNT 3.39 M/UL (4.20-5.40); WHITE BLOOD COUNT 5.3 K/UL (4.8-10.8)
[2019-04-04 05:31] LABS: ALANINE AMINOTRANSFERASE 25 U/L (12-78); ALBUMIN 1.2 G/DL (3.4-5.0); ALBUMIN/GLOBULIN RATIO 0.3 (1.0-2.7); ALKALINE PHOSPHATASE 388 U/L (46-116); ANION GAP 9 mmol/L (5-15); ASPARTATE AMINO TRANSFERASE 78 U/L (15-37); BILIRUBIN,TOTAL 1.6 MG/DL (0.2-1.0); BLOOD UREA NITROGEN 4 mg/dL (7-18); CALCIUM 6.9 MG/DL (8.5-10.1); CARBON DIOXIDE 22 MMOL/L (21-32); CHLORIDE 108 MMOL/L (98-107); CREATININE 0.5 MG/DL (0.55-1.30); POTASSIUM 3.3 MMOL/L (3.5-5.1); SODIUM 139 MMOL/L (136-145)
[2019-04-04 05:33] LABS: BILIRUBIN,DIRECT 0.9 MG/DL (0.0-0.3)
--- NOTE | 2019-04-04 06:00 | NUR ---
NURSE NOTES: Transferred patient to TELE room 212-1. Report given to GLORIA Saenz. Patient shows no signs and symptoms of pain or distress, transfer orders processed.
--- NOTE | 2019-04-04 06:02 | NUR ---
NURSE NOTES: Pt transferred from [facility]. Got report from Evie CASTRO. Pt in stable condition. Continue to monitor.
[2019-04-04] MEDS ORDERED: D5 1/2NS 1,000 ML IV SCH (06:15)
[2019-04-04] MEDS ORDERED: Nitroglycerin Subl 0.4mg tab SL PRN (07:00)
[2019-04-04] MEDS ORDERED: Morphine Sulfate 2mg/ml Inj(IV/IM USE ONLY) IVP PRN ×2 (07:00)
--- NOTE | 2019-04-04 07:00 | NUR ---
HAND-OFF: Report given to Tala CASTRO. Endorsed plan of care.
--- NOTE | 2019-04-04 07:01 | NUR ---
NURSE NOTES: Received patient in bed. Awake, confused, unable to follow commands.
[2019-04-04] MEDS ORDERED: Miralax 17gm pkt ORAL PRN (07:15)
[2019-04-04 08:00] VITALS: BP 165/91
[2019-04-04] MEDS ORDERED: Isovue-300 100ml vial INJ PRN (08:45)
[2019-04-04] MEDS ORDERED: Piperacillin/Tazobactam 3.375 GM in NS 110 ML IVPB SCH (09:00)
[2019-04-04] MEDS ORDERED: Pantoprazole Inj IVP SCH (09:00)
[2019-04-04] MEDS ORDERED: Aspirin Baby 81mg ORAL SCH ×2 (09:00)
[2019-04-04] MEDS: Metoprolol Tartrate 12.5mg TAB ORAL SCH ×2 (09:02→21:00)
--- NOTE | 2019-04-04 09:07 | NUR ---
*-* NO INSURANCE INFORMATION IN THE SYSTEM UNABLE TO SEND CLINICALS OR REVIEWS *-*
--- NOTE | 2019-04-04 09:32 | General Progress Note ---
Assessment/Plan Problem List: (1) Anemia ICD Codes: D64.9 - Anemia, unspecified SNOMED: 409911976, 742176338 Qualifiers: Qualified Codes: D64.9 - Anemia, unspecified (2) Altered level of consciousness ICD Codes: R40.4 - Transient alteration of awareness SNOMED: 6943587, 887577839 (3) Acute alcoholic intoxication ICD Codes: F10.929 - Alcohol use, unspecified with intoxication, unspecified SNOMED: 11640346 Qualifiers: Qualified Codes: F10.929 - Alcohol use, unspecified with intoxication, unspecified (4) Elevated troponin ICD Codes: R74.8 - Abnormal levels of other serum enzymes SNOMED: 119972392, 377870148, 929865686 (5) History of cirrhosis ICD Codes: Z87.19 - Personal history of other diseases of the digestive system SNOMED: 505960400 Status: stable, progressing Assessment/Plan: pt diet detox ivf cbc bmp am dc plan Subjective Constitutional: Reports: weakness Allergies: Coded Allergies: No Known Allergies (Unverified , 02/20/18) All Systems: reviewed and negative except above Subjective sleepy calm in bed Objective Last 24 Hour Vital Signs Date Time Temp Pulse Resp B/P (MAP) Pulse Ox O2 Delivery O2 Flow Rate FiO2 04/04/19 09:02 103 165/91 04/04/19 08:00 97.4 103 20 165/91 (115) 96 04/04/19 04:00 Room Air 04/04/19 04:00 98.1 101 21 152/94 (113) 96 04/04/19 03:22 98 04/04/19 00:00 98.2 97 20 137/62 (87) 100 04/04/19 00:00 Room Air 04/03/19 23:31 95 04/03/19 20:19 97 166/106 04/03/19 20:00 97.6 103 16 158/86 (110) 96 04/03/19 20:00 Room Air 04/03/19 19:24 97 04/03/19 16:00 Room Air 04/03/19 16:00 97.8 80 18 132/83 (99) 93 04/03/19 15:20 101 04/03/19 12:00 101 04/03/19 12:00 98.3 93 18 129/79 (96) 97 04/03/19 12:00 Room Air Intake and Output 04/03/19 04/04/19 19:00 07:00 Intake Total 1064.00 ml 791.05 ml Balance 1064.00 ml 791.05 ml Intake Oral 0 ml IV Total 1064.00 ml 791.05 ml # Voids 5 # Bowel Movements 1 5 Laboratory Tests 04/03/19 11:45: Troponin I 0.115H 04/03/19 20:00: Troponin I 0.119H 04/04/19 03:30: Alpha Fetoprotein [Pending] 04/04/19 03:40: Troponin I 0.124H, White Blood Count 5.3, Red Blood Count 3.39L, Hemoglobin 8.6L , Hematocrit 27.0L, Mean Corpuscular Volume 80, Mean Corpuscular Hemoglobin 25.4L, Mean Corpuscular Hemoglobin Concent 31.8L, Red Cell Distribution Width 16.0H, Platelet Count 200, Mean Platelet Volume 5.5L, Neutrophils (%) (Auto) 75.8H, Lymphocytes (%) (Auto) 12.4L, Monocytes (%) (Auto) 9.3, Eosinophils (%) ( Auto) 1.0, Basophils (%) (Auto) 1.4, Activated Partial Thromboplast Time 27, Sodium Level 139, Potassium Level 3.3L, Chloride Level 108H, Carbon Dioxide Level 22, Anion Gap 9, Blood Urea Nitrogen 4L, Creatinine 0.5L, Estimat Glomerular Filtration Rate > 60, Glucose Level 103, Calcium Level 6.9L, Total Bilirubin 1.6H, Direct Bilirubin 0.9H, Aspartate Amino Transf (AST/SGOT) 78H, Alanine Aminotransferase (ALT/SGPT) 25, Alkaline Phosphatase 388H, Total Protein 4.9L, Albumin 1.2L, Globulin 3.7, Albumin/Globulin Ratio 0.3L Height (Feet): 5 Height (Inches): 2.00 Weight (Pounds): 167 General Appearance: lethargic EENT: normal ENT inspection Neck: normal alignment Cardiovascular: normal peripheral pulses, normal rate, regular rhythm Respiratory/Chest: chest wall non-tender, lungs clear, normal breath sounds Abdomen: normal bowel sounds, non tender, soft Extremities: normal inspection Edema: no edema noted Arm (L), no edema noted Arm (R), no edema noted Leg (L), no edema noted Leg (R), no edema noted Pedal (L), no edema noted Pedal (R), no edema noted Generalized Neurologic: motor weakness Skin: normal pigmentation, warm/dry Axel Lock DO Apr 04, 2019 09:32
--- NOTE | 2019-04-04 09:41 | General Progress Note ---
Assessment/Plan Problem List: (1) History of cirrhosis ICD Codes: Z87.19 - Personal history of other diseases of the digestive system SNOMED: 564142479 (2) Elevated troponin ICD Codes: R74.8 - Abnormal levels of other serum enzymes SNOMED: 745124543, 279072262, 207816960 (3) Acute alcoholic intoxication ICD Codes: F10.929 - Alcohol use, unspecified with intoxication, unspecified SNOMED: 79496311 Qualifiers: Qualified Codes: F10.929 - Alcohol use, unspecified with intoxication, unspecified (4) Serum ammonia increased ICD Codes: E72.20 - Disorder of urea cycle metabolism, unspecified SNOMED: 3653590 (5) Anemia ICD Codes: D64.9 - Anemia, unspecified SNOMED: 173428033, 493827815 Qualifiers: Qualified Codes: D64.9 - Anemia, unspecified Status: stable, progressing Assessment/Plan: fu abd us and CT paracentesis if needed fu AFP lactulose thiamine Subjective ROS Limited/Unobtainable: No Allergies: Coded Allergies: No Known Allergies (Unverified , 02/20/18) Objective Last 24 Hour Vital Signs Date Time Temp Pulse Resp B/P (MAP) Pulse Ox O2 Delivery O2 Flow Rate FiO2 04/04/19 09:02 103 165/91 04/04/19 08:00 97.4 103 20 165/91 (115) 96 04/04/19 04:00 Room Air 04/04/19 04:00 98.1 101 21 152/94 (113) 96 04/04/19 03:22 98 04/04/19 00:00 98.2 97 20 137/62 (87) 100 04/04/19 00:00 Room Air 04/03/19 23:31 95 04/03/19 20:19 97 166/106 04/03/19 20:00 97.6 103 16 158/86 (110) 96 04/03/19 20:00 Room Air 04/03/19 19:24 97 04/03/19 16:00 Room Air 04/03/19 16:00 97.8 80 18 132/83 (99) 93 04/03/19 15:20 101 04/03/19 12:00 101 04/03/19 12:00 98.3 93 18 129/79 (96) 97 04/03/19 12:00 Room Air Intake and Output 04/03/19 04/04/19 19:00 07:00 Intake Total 1064.00 ml 791.05 ml Balance 1064.00 ml 791.05 ml Intake Oral 0 ml IV Total 1064.00 ml 791.05 ml # Voids 5 # Bowel Movements 1 5 Laboratory Tests 04/03/19 11:45: Troponin I 0.115H 04/03/19 20:00: Troponin I 0.119H 04/04/19 03:30: Alpha Fetoprotein [Pending] 04/04/19 03:40: Troponin I 0.124H, White Blood Count 5.3, Red Blood Count 3.39L, Hemoglobin 8.6L , Hematocrit 27.0L, Mean Corpuscular Volume 80, Mean Corpuscular Hemoglobin 25.4L, Mean Corpuscular Hemoglobin Concent 31.8L, Red Cell Distribution Width 16.0H, Platelet Count 200, Mean Platelet Volume 5.5L, Neutrophils (%) (Auto) 75.8H, Lymphocytes (%) (Auto) 12.4L, Monocytes (%) (Auto) 9.3, Eosinophils (%) ( Auto) 1.0, Basophils (%) (Auto) 1.4, Activated Partial Thromboplast Time 27, Sodium Level 139, Potassium Level 3.3L, Chloride Level 108H, Carbon Dioxide Level 22, Anion Gap 9, Blood Urea Nitrogen 4L, Creatinine 0.5L, Estimat Glomerular Filtration Rate > 60, Glucose Level 103, Calcium Level 6.9L, Total Bilirubin 1.6H, Direct Bilirubin 0.9H, Aspartate Amino Transf (AST/SGOT) 78H, Alanine Aminotransferase (ALT/SGPT) 25, Alkaline Phosphatase 388H, Total Protein 4.9L, Albumin 1.2L, Globulin 3.7, Albumin/Globulin Ratio 0.3L Height (Feet): 5 Height (Inches): 2.00 Weight (Pounds): 167 General Appearance: lethargic EENT: normal ENT inspection Neck: supple Cardiovascular: normal rate Respiratory/Chest: decreased breath sounds Abdomen: normal bowel sounds, non tender, soft Extremities: non-tender Sebas Schneider MD Apr 04, 2019 09:41
--- NOTE | 2019-04-04 09:45 | NUR ---
NURSE NOTES: Spoke with Dr. Schneider thru the phone. Informed MD that patient is having paracentesis and abdo ultrasound today. With order to resched CT abdo for tomorrow.
--- NOTE | 2019-04-04 11:00 | NUR ---
NURSE NOTES: Patient uncooperative with care. Noted getting out of bed without assistance. Will continue to monitor.
--- NOTE | 2019-04-04 11:17 | Cardiac Electrophysiology PN ---
Assessment/Plan Assessment/Plan 1. Troponin leak. The levels are flat and nonspecific. The patient does not have any chest pain. EKG is completely normal. Keep the patient on aspirin and beta-miguel. Echocardiogram EF 60%. Not cooperative for stress test in view of encephalopathy 2. 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 Schneider Paracentesis today 3. Altered mental status. 4. Alcohol use. ESTEBAN RN Subjective Subjective Scheduled for paracentesis today. Still confused Objective Last 24 Hour Vital Signs Date Time Temp Pulse Resp B/P (MAP) Pulse Ox O2 Delivery O2 Flow Rate FiO2 04/04/19 09:02 103 165/91 04/04/19 09:00 Room Air 04/04/19 08:00 97.4 103 20 165/91 (115) 96 04/04/19 07:40 95 04/04/19 04:00 Room Air 04/04/19 04:00 98.1 101 21 152/94 (113) 96 04/04/19 03:22 98 04/04/19 00:00 98.2 97 20 137/62 (87) 100 04/04/19 00:00 Room Air 04/03/19 23:31 95 04/03/19 20:19 97 166/106 04/03/19 20:00 97.6 103 16 158/86 (110) 96 04/03/19 20:00 Room Air 04/03/19 19:24 97 04/03/19 16:00 Room Air 04/03/19 16:00 97.8 80 18 132/83 (99) 93 04/03/19 15:20 101 04/03/19 12:00 101 04/03/19 12:00 98.3 93 18 129/79 (96) 97 04/03/19 12:00 Room Air Intake and Output 04/03/19 04/04/19 19:00 07:00 Intake Total 1064.00 ml 791.05 ml Balance 1064.00 ml 791.05 ml Intake Oral 0 ml IV Total 1064.00 ml 791.05 ml # Voids 5 # Bowel Movements 1 5 Laboratory Tests Test 04/03/19 11:45 04/03/19 20:00 04/04/19 03:30 04/04/19 03:40 Troponin I 0.115 ng/mL (0.000-0.056) 0.119 ng/mL (0.000-0.056) 0.124 ng/mL (0.000-0.056) Alpha Fetoprotein Pending White Blood Count 5.3 K/UL (4.8-10.8) Red Blood Count 3.39 M/UL (4.20-5.40) L Hemoglobin 8.6 G/DL (12.0-16.0) L Hematocrit 27.0 % (37.0-47.0) L Mean Corpuscular Volume 80 FL (80-99) Mean Corpuscular Hemoglobin 25.4 PG (27.0-31.0) L Mean Corpuscular Hemoglobin Concent 31.8 G/DL (32.0-36.0) L Red Cell Distribution Width 16.0 % (11.6-14.8) H Platelet Count 200 K/UL (150-450) Mean Platelet Volume 5.5 FL (6.5-10.1) L Neutrophils (%) (Auto) 75.8 % (45.0-75.0) H Lymphocytes (%) (Auto) 12.4 % (20.0-45.0) L Monocytes (%) (Auto) 9.3 % (1.0-10.0) Eosinophils (%) (Auto) 1.0 % (0.0-3.0) Basophils (%) (Auto) 1.4 % (0.0-2.0) Activated Partial Thromboplast Time 27 SEC (23-33) Sodium Level 139 MMOL/L (136-145) Potassium Level 3.3 MMOL/L (3.5-5.1) L Chloride Level 108 MMOL/L (98-107) H Carbon Dioxide Level 22 MMOL/L (21-32) Anion Gap 9 mmol/L (5-15) Blood Urea Nitrogen 4 mg/dL (7-18) L Creatinine 0.5 MG/DL (0.55-1.30) L Estimat Glomerular Filtration Rate > 60 mL/min (>60) Glucose Level 103 MG/DL (74-106) Calcium Level 6.9 MG/DL (8.5-10.1) L Total Bilirubin 1.6 MG/DL (0.2-1.0) H Direct Bilirubin 0.9 MG/DL (0.0-0.3) H Aspartate Amino Transf (AST/SGOT) 78 U/L (15-37) H Alanine Aminotransferase (ALT/SGPT) 25 U/L (12-78) Alkaline Phosphatase 388 U/L (46-116) H Total Protein 4.9 G/DL (6.4-8.2) L Albumin 1.2 G/DL (3.4-5.0) L Globulin 3.7 g/dL Albumin/Globulin Ratio 0.3 (1.0-2.7) L Microbiology Date/Time Source Procedure Growth Status 04/03/19 01:30 Blood Blood Culture - Preliminary NO GROWTH AFTER 24 HOURS Resulted 04/03/19 01:15 Blood Blood Culture - Preliminary NO GROWTH AFTER 24 HOURS Resulted Objective HEAD AND NECK: No JVD. LUNGS: Clear. CARDIOVASCULAR: Regular S1 and S2 with no gallop or murmur. ABDOMEN: Soft. EXTREMITIES: No pitting edema. SKIN: Diffuse plaques that looks like psoriatic lesions. Renato Garvey MD Apr 04, 2019 11:17
--- NOTE | 2019-04-04 11:25 | Cardiology Report ---
APPROVED REPORT EXAM: Two-dimensional and M-mode echocardiogram with Doppler and color Doppler. INDICATION Hypertension M-Mode DIMENSIONS IVSd1.3 (0.7-1.1cm)Left Atrium (MM)4.2 (1.6-4.0cm) LVDd4.8 (3.5-5.6cm)Aortic Root2.5 (2.0-3.7cm) PWd1.3 (0.7-1.1cm)Aortic Cusp Exc.2.0 (1.5-2.0cm) LVDs2.7 (2.5-4.0cm) PWs1.8 cm Normal left ventricular chamber size, systolic function and wall motion. Left ventricular ejection fraction estimated to be 60-65 %. Mild left ventricular hypertrophy. Small to moderate plueral effusion. Mild left atrial enlargement. Right cardiac chamber sizes are within normal limits. Focal aortic valve sclerosis with adequate cusp excursion. Thickened mitral valve leaflets with normal excursion. Mild mitral annulus and aortic root calcification. Pulmonic valve not well visualized. Normal tricuspid valve structure. IVC at normal size without physiologic collapse. A color flow and spectral Doppler study was performed and revealed: No aortic regurgitation. Trace mitral regurgitation. Mitral diastolic velocities suggest reduced left ventricular relaxation (Grade I ). Trace tricuspid regurgitation. Tricuspid systolic velocities suggests peak right ventricular systolic pressure of 26 mmHg. Pulmonic regurgitation present.
--- NOTE | 2019-04-04 11:43 | Consultation ---
History of Present Illness General Date patient seen: Apr 04, 2019 Chief Complaint: Alcohol Intoxication Present Illness HPI 48 y/o F with hx of ETOH abuse, HTN, cirrhosis presented to ED on 04/03 with confusion. Patient fell and hit her head. She was found to have alcohol intoxication, elevated troponin, scalp laceration. Allergies: Coded Allergies: No Known Allergies (Unverified , 02/20/18) Medication History Miscellaneous Medications Unable to Obtain Medications (Unable To Obtain Meds), (Reported) Patient History Healthcare decision maker Resuscitation status Full Code Advanced Directive on File No Patient History Narrative Pmhx: as above Shx: Unavailable and unobtainable. However, the chart reports a history of alcoholism. Originally from [facility]. Lives at home with . Fhx: non contributory Review of Systems All Other Systems: negative except mentioned in HPI Physical Exam Physical Exam Narrative GENERAL: Lethargic, sedated in bed, nonverbal. CARDIOVASCULAR: No murmur. LUNGS: Distant and clear. ABDOMEN: Bowel sounds positive. Nontender. Nondistended. EXTREMITIES: No cyanosis, clubbing, or edema. NEUROLOGIC: The patient is flaccid in bed, not following directions. Last 24 Hour Vital Signs Date Time Temp Pulse Resp B/P (MAP) Pulse Ox O2 Delivery O2 Flow Rate FiO2 04/04/19 09:02 103 165/91 04/04/19 09:00 Room Air 04/04/19 08:00 97.4 103 20 165/91 (115) 96 04/04/19 07:40 95 04/04/19 04:00 Room Air 04/04/19 04:00 98.1 101 21 152/94 (113) 96 04/04/19 03:22 98 04/04/19 00:00 98.2 97 20 137/62 (87) 100 04/04/19 00:00 Room Air 04/03/19 23:31 95 04/03/19 20:19 97 166/106 04/03/19 20:00 97.6 103 16 158/86 (110) 96 04/03/19 20:00 Room Air 04/03/19 19:24 97 04/03/19 16:00 Room Air 04/03/19 16:00 97.8 80 18 132/83 (99) 93 04/03/19 15:20 101 04/03/19 12:00 101 04/03/19 12:00 98.3 93 18 129/79 (96) 97 04/03/19 12:00 Room Air Intake and Output 04/03/19 04/04/19 19:00 07:00 Intake Total 1064.00 ml 791.05 ml Balance 1064.00 ml 791.05 ml Intake Oral 0 ml IV Total 1064.00 ml 791.05 ml # Voids 5 # Bowel Movements 1 5 Laboratory Tests Test 04/03/19 11:45 04/03/19 20:00 04/04/19 03:30 04/04/19 03:40 Troponin I 0.115 ng/mL (0.000-0.056) 0.119 ng/mL (0.000-0.056) 0.124 ng/mL (0.000-0.056) Alpha Fetoprotein Pending White Blood Count 5.3 K/UL (4.8-10.8) Red Blood Count 3.39 M/UL (4.20-5.40) L Hemoglobin 8.6 G/DL (12.0-16.0) L Hematocrit 27.0 % (37.0-47.0) L Mean Corpuscular Volume 80 FL (80-99) Mean Corpuscular Hemoglobin 25.4 PG (27.0-31.0) L Mean Corpuscular Hemoglobin Concent 31.8 G/DL (32.0-36.0) L Red Cell Distribution Width 16.0 % (11.6-14.8) H Platelet Count 200 K/UL (150-450) Mean Platelet Volume 5.5 FL (6.5-10.1) L Neutrophils (%) (Auto) 75.8 % (45.0-75.0) H Lymphocytes (%) (Auto) 12.4 % (20.0-45.0) L Monocytes (%) (Auto) 9.3 % (1.0-10.0) Eosinophils (%) (Auto) 1.0 % (0.0-3.0) Basophils (%) (Auto) 1.4 % (0.0-2.0) Activated Partial Thromboplast Time 27 SEC (23-33) Sodium Level 139 MMOL/L (136-145) Potassium Level 3.3 MMOL/L (3.5-5.1) L Chloride Level 108 MMOL/L (98-107) H Carbon Dioxide Level 22 MMOL/L (21-32) Anion Gap 9 mmol/L (5-15) Blood Urea Nitrogen 4 mg/dL (7-18) L Creatinine 0.5 MG/DL (0.55-1.30) L Estimat Glomerular Filtration Rate > 60 mL/min (>60) Glucose Level 103 MG/DL (74-106) Calcium Level 6.9 MG/DL (8.5-10.1) L Total Bilirubin 1.6 MG/DL (0.2-1.0) H Direct Bilirubin 0.9 MG/DL (0.0-0.3) H Aspartate Amino Transf (AST/SGOT) 78 U/L (15-37) H Alanine Aminotransferase (ALT/SGPT) 25 U/L (12-78) Alkaline Phosphatase 388 U/L (46-116) H Total Protein 4.9 G/DL (6.4-8.2) L Albumin 1.2 G/DL (3.4-5.0) L Globulin 3.7 g/dL Albumin/Globulin Ratio 0.3 (1.0-2.7) L Height (Feet): 5 Height (Inches): 2.00 Weight (Pounds): 167 Medications Current Medications Medications (Trade) Dose Ordered Sig/Rita Route PRN Reason Start Time Stop Time Status Last Admin Dose Admin Acetaminophen (Tylenol) 650 mg Q12H PRN ORAL fever (T>100.5F) 04/04/19 08:45 05/03/19 08:44 Aspirin (ASA) 81 mg DAILY ORAL 04/04/19 09:00 05/04/19 08:59 Barium Sulfate (Readi-Cat 2) 450 ml NOW PRN ORAL Radiology Procedure 04/04/19 08:45 04/05/19 08:31 Dextrose (Dextrose 50%) 25 ml Q30MIN PRN IV Hypoglycemia 04/04/19 06:30 05/03/19 07:14 Dextrose (Dextrose 50%) 50 ml Q30MIN PRN IV Hypoglycemia 04/04/19 06:30 05/03/19 07:14 Dextrose/Sodium Chloride 1,000 ml @ 75 mls/hr [id number] IV 04/04/19 06:15 05/03/19 07:59 04/04/19 06:15 Diphenhydramine HCl (Benadryl) 25 mg Q6H PRN ORAL Itching/Pruritis 04/04/19 07:15 05/03/19 07:14 Iopamidol (Isovue-300 100ml) 100 ml NOW PRN INJ Radiology Procedure 04/04/19 08:45 04/05/19 08:44 Lactulose 200 gm/ Sterile Water 125 ml @ 0 mls/hr Q6H IRRIG 04/04/19 10:00 04/05/19 09:59 Metoprolol Tartrate (Lopressor) 12.5 mg Q12HR ORAL 04/04/19 09:00 05/03/19 20:59 04/04/19 09:02 Morphine Sulfate (Morphine Sulfate) 2 mg Q4H PRN IVP For Pain 04/04/19 07:00 04/10/19 06:59 Morphine Sulfate (Morphine Sulfate) 2 mg Q4H PRN IVP severe Pain (Pain Scale 7-10) 04/04/19 07:00 04/11/19 06:59 Nitroglycerin (Ntg) 0.4 mg Q5M X 3 DOSES PRN SL Prn Chest Pain 04/04/19 07:00 05/03/19 06:59 Ondansetron HCl (Zofran) 4 mg Q6H PRN IVP Nausea & Vomiting 04/04/19 07:15 05/03/19 07:14 Pantoprazole (Protonix) 40 mg DAILY IVP 04/04/19 09:00 05/03/19 08:59 04/04/19 09:01 Piperacillin Sod/ Tazobactam Sod 3.375 gm/Sodium Chloride 110 ml @ 27.5 mls/hr Q8HR@0100,0900,1700 IVPB 04/04/19 09:00 04/10/19 08:59 04/04/19 09:02 Assessment/Plan Assessment/Plan: Abx: Zosyn 04/03- Assessment: Alcohol intoxication, severe -alcohol level 447 Probable aspiration pneumonia -04/02 CXR: Mild cardiomegaly. Moderate right pleural effusion. Increased opacity in the right lung, possibly infection, edema, or atelectasis. Afebrile No leukocytosis -u/a neg Acute encephalopathy- 2ry to above -CT head: No acute hemorrhage, hydrocephalus, or mass effect. Scalp laceration s/p fall ETOH abuse HTN cirrhosis Plan: -Switch Zosyn #2 to Ceftriaxone for aspiration pneumonia -f/u cx -Monitor CBC/CMP, temperatures Thank you for this consultation. Will continue to follow along with you. Discussed with Wendi Selby M.D. Apr 04, 2019 11:43
--- NOTE | 2019-04-04 11:46 | Cardiology Report ---
APPROVED REPORT EKG Measurement Heart [id number] [place] [id number] Normal sinus rhythm Normal ECG
--- NOTE | 2019-04-04 11:54 | Cardiology Report ---
APPROVED REPORT EKG Measurement Heart [id number] [place] 138P7 [id number] Normal sinus rhythm Normal ECG
[2019-04-04 11:58] LABS: INR 1.1 (0.9-1.1)
[2019-04-04 12:00] VITALS: BP 158/88
--- NOTE | 2019-04-04 12:24 | Pulmonology Progress Note ---
Assessment/Plan Problems: (1) History of cirrhosis (2) Acute alcoholic intoxication (3) Altered level of consciousness Assessment/Plan symptomatic treatment iv fluids ativan prn dc home Subjective ROS Limited/Unobtainable: No Constitutional: Reports: no symptoms HEENT: Repors: no symptoms Respiratory: Reports: no symptoms Allergies: Coded Allergies: No Known Allergies (Unverified , 02/20/18) Objective Last 24 Hour Vital Signs Date Time Temp Pulse Resp B/P (MAP) Pulse Ox O2 Delivery O2 Flow Rate FiO2 04/04/19 09:02 103 165/91 04/04/19 09:00 Room Air 04/04/19 08:00 97.4 103 20 165/91 (115) 96 04/04/19 07:40 95 04/04/19 04:00 Room Air 04/04/19 04:00 98.1 101 21 152/94 (113) 96 04/04/19 03:22 98 04/04/19 00:00 98.2 97 20 137/62 (87) 100 04/04/19 00:00 Room Air 04/03/19 23:31 95 04/03/19 20:19 97 166/106 04/03/19 20:00 97.6 103 16 158/86 (110) 96 04/03/19 20:00 Room Air 04/03/19 19:24 97 04/03/19 16:00 Room Air 04/03/19 16:00 97.8 80 18 132/83 (99) 93 04/03/19 15:20 101 Intake and Output 04/03/19 04/04/19 19:00 07:00 Intake Total 1064.00 ml 791.05 ml Balance 1064.00 ml 791.05 ml Intake Oral 0 ml IV Total 1064.00 ml 791.05 ml # Voids 5 # Bowel Movements 1 5 General Appearance: WD/WN HEENT: normocephalic, atraumatic, PERRL Respiratory/Chest: lungs clear Breasts: no masses Cardiovascular: normal peripheral pulses Abdomen: normal bowel sounds, soft, non tender Genitourinary: normal external genitalia Extremities: no clubbing Neurologic/Psychiatric: manager home healthcare II-XII grossly normal Microbiology Date/Time Source Procedure Growth Status 04/03/19 01:30 Blood Blood Culture - Preliminary NO GROWTH AFTER 24 HOURS Resulted 04/03/19 01:15 Blood Blood Culture - Preliminary NO GROWTH AFTER 24 HOURS Resulted Laboratory Tests 04/03/19 20:00: Troponin I 0.119H 04/04/19 03:30: Alpha Fetoprotein [Pending] 04/04/19 03:40: Troponin I 0.124H, White Blood Count 5.3, Red Blood Count 3.39L, Hemoglobin 8.6L , Hematocrit 27.0L, Mean Corpuscular Volume 80, Mean Corpuscular Hemoglobin 25.4L, Mean Corpuscular Hemoglobin Concent 31.8L, Red Cell Distribution Width 16.0H, Platelet Count 200, Mean Platelet Volume 5.5L, Neutrophils (%) (Auto) 75.8H, Lymphocytes (%) (Auto) 12.4L, Monocytes (%) (Auto) 9.3, Eosinophils (%) ( Auto) 1.0, Basophils (%) (Auto) 1.4, Activated Partial Thromboplast Time 27, Sodium Level 139, Potassium Level 3.3L, Chloride Level 108H, Carbon Dioxide Level 22, Anion Gap 9, Blood Urea Nitrogen 4L, Creatinine 0.5L, Estimat Glomerular Filtration Rate > 60, Glucose Level 103, Calcium Level 6.9L, Total Bilirubin 1.6H, Direct Bilirubin 0.9H, Aspartate Amino Transf (AST/SGOT) 78H, Alanine Aminotransferase (ALT/SGPT) 25, Alkaline Phosphatase 388H, Total Protein 4.9L, Albumin 1.2L, Globulin 3.7, Albumin/Globulin Ratio 0.3L 04/04/19 11:20: Activated Partial Thromboplast Time 26, Prothrombin Time 12.1H, Prothromb Time International Ratio 1.1 Current Medications Medications (Trade) Dose Ordered Sig/Rita Route PRN Reason Start Time Stop Time Status Last Admin Dose Admin Acetaminophen (Tylenol) 650 mg Q12H PRN ORAL fever (T>100.5F) 04/04/19 08:45 05/03/19 08:44 Aspirin (ASA) 81 mg DAILY ORAL 04/04/19 09:00 05/04/19 08:59 Barium Sulfate (Readi-Cat 2) 450 ml NOW PRN ORAL Radiology Procedure 04/04/19 08:45 04/05/19 08:31 Dextrose (Dextrose 50%) 25 ml Q30MIN PRN IV Hypoglycemia 04/04/19 06:30 05/03/19 07:14 Dextrose (Dextrose 50%) 50 ml Q30MIN PRN IV Hypoglycemia 04/04/19 06:30 05/03/19 07:14 Dextrose/Sodium Chloride 1,000 ml @ 75 mls/hr [id number] IV 04/04/19 06:15 05/03/19 07:59 04/04/19 06:15 Diphenhydramine HCl (Benadryl) 25 mg Q6H PRN ORAL Itching/Pruritis 04/04/19 07:15 05/03/19 07:14 Iopamidol (Isovue-300 100ml) 100 ml NOW PRN INJ Radiology Procedure 04/04/19 08:45 04/05/19 08:44 Lactulose 200 gm/ Sterile Water 125 ml @ 0 mls/hr Q6H IRRIG 04/04/19 10:00 04/05/19 09:59 Metoprolol Tartrate (Lopressor) 12.5 mg Q12HR ORAL 04/04/19 09:00 05/03/19 20:59 04/04/19 09:02 Morphine Sulfate (Morphine Sulfate) 2 mg Q4H PRN IVP For Pain 04/04/19 07:00 04/10/19 06:59 Morphine Sulfate (Morphine Sulfate) 2 mg Q4H PRN IVP severe Pain (Pain Scale 7-10) 04/04/19 07:00 04/11/19 06:59 Nitroglycerin (Ntg) 0.4 mg Q5M X 3 DOSES PRN SL Prn Chest Pain 04/04/19 07:00 05/03/19 06:59 Ondansetron HCl (Zofran) 4 mg Q6H PRN IVP Nausea & Vomiting 04/04/19 07:15 05/03/19 07:14 Pantoprazole (Protonix) 40 mg DAILY IVP 04/04/19 09:00 05/03/19 08:59 04/04/19 09:01 Piperacillin Sod/ Tazobactam Sod 3.375 gm/Sodium Chloride 110 ml @ 27.5 mls/hr Q8HR@0100,0900,1700 IVPB 04/04/19 09:00 04/10/19 08:59 04/04/19 09:02 Rosemary Wilson MD Apr 04, 2019 12:23
[2019-04-04] MEDS ORDERED: Tubing IV Secondary IV ONE (12:42)
[2019-04-04] MEDS ORDERED: D5 1/2NS 1000ml IV ONE (12:42)
[2019-04-04] MEDS ORDERED: NS 275ml ONE (12:42)
[2019-04-04] MEDS ORDERED: Folic Acid 1 MG, Magnesium Sulfate 2,000 MG, Multivitamin - 12 Injection 10 ML in Sodiu... IV SCH (14:00)
[2019-04-04] MEDS ORDERED: Thiamine 100mg in D5W 55ml IVPB SCH (14:00)
--- NOTE | 2019-04-04 15:20 | NUR ---
CASE MANAGEMENT:REVIEW 48 YR OLD FEMALE BIBA FROM HOME 'CC: ALCOHOL INTOXICATION SI: ACUTE ALCOHOL INTOXICATION 98.5 96 18 110/67 96% ON RA H/H-8.6/26.5 SERUM ALCOHOL(+) 447 TROPONIN(+) 0.130 MAG-1.4 CA-6.6 IS: IV THIAMINE 1L NS BOLUS ASA [place] IV ZOSYN IV VIT K IV MAG Q1HRS X2 BLOOD CX CT HEAD CHEST XRAY : TO TELEMETRY INTERQUAL CRITERIA MET
--- NOTE | 2019-04-04 15:33 | Diagnostic Imaging Report ---
Indication: Abnormal liver function tests Technique: Galvin-scale and duplex images of the upper abdomen were obtained Comparison: none Findings: Gallbladder is then removed. Common bile duct measures 7 mm in diameter. No intrahepatic biliary ductal dilatation. The liver demonstrates surface nodularity and coarsened echotexture Portal vein and hepatic veins are patent. There is a round mass which is isoechoic to liver parenchyma at the marcela hepatis which measures 9 x 7.7 cm. It is unclear whether this is of hepatic or pancreatic origin although suspect the former. There is an 11 mm cyst coming off of the right hepatic lobe. There is trace ascites fluid. There is also a right pleural effusion. To-and-fro flow is seen within the main portal vein.. Varices are seen in the region of the marcela hepatis. Left kidney measures cm in length. Right kidney measures 11.8 cm length. Hypoechoic structure with vascularity seen in the lower pole of the right kidney, measures 2.3 cm in diameter. There is no hydronephrosis. Left kidney demonstrates a small lower pole cyst. Abdominal aorta is partially obscured by bowel gas, visualized portions are non-aneurysmal . Impression: 9 x 7.7 cm mass, probably hepatic in origin but possibly pancreatic, at the marcela hepatis. This is concerning for neoplasm. Further evaluation with contrast CT is recommended Coarsened hepatic echogenicity and hepatic surface nodularity, concerning for cirrhotic change. Evidence of portal hypertension, with to and fro flow within the main portal vein, varices, and trace ascites fluid. Note inability visualized portions of the abdominal aorta Suspect vascular solid mass in the lower pole of right kidney. Likewise recommend further evaluation with contrast CT Incidental finding right pleural effusion Evident of prior cholecystectomy. Negative for dilated bile ducts. Incidental finding large right lobe hepatic cyst, left renal cyst
--- NOTE | 2019-04-04 15:39 | Consultation ---
History of Present Illness General Chief Complaint: Alcohol Intoxication Present Illness Allergies: Coded Allergies: No Known Allergies (Unverified , 02/20/18) Medication History Miscellaneous Medications Unable to Obtain Medications (Unable To Obtain Meds), (Reported) Patient History Healthcare decision maker Resuscitation status Full Code Advanced Directive on File No Physical Exam Last 24 Hour Vital Signs Date Time Temp Pulse Resp B/P (MAP) Pulse Ox O2 Delivery O2 Flow Rate FiO2 04/04/19 12:00 98.2 86 18 158/88 (111) 97 04/04/19 09:02 103 165/91 04/04/19 09:00 Room Air 04/04/19 08:00 97.4 103 20 165/91 (115) 96 04/04/19 07:40 95 04/04/19 04:00 Room Air 04/04/19 04:00 98.1 101 21 152/94 (113) 96 04/04/19 03:22 98 04/04/19 00:00 98.2 97 20 137/62 (87) 100 04/04/19 00:00 Room Air 04/03/19 23:31 95 04/03/19 20:19 97 166/106 04/03/19 20:00 97.6 103 16 158/86 (110) 96 04/03/19 20:00 Room Air 04/03/19 19:24 97 04/03/19 16:00 Room Air 04/03/19 16:00 97.8 80 18 132/83 (99) 93 Intake and Output 04/03/19 04/04/19 19:00 07:00 Intake Total 1064.00 ml 791.05 ml Balance 1064.00 ml 791.05 ml Intake Oral 0 ml IV Total 1064.00 ml 791.05 ml # Voids 5 # Bowel Movements 1 5 Laboratory Tests Test 04/03/19 20:00 04/04/19 03:30 04/04/19 03:40 04/04/19 11:20 Troponin I 0.119 ng/mL (0.000-0.056) 0.124 ng/mL (0.000-0.056) Alpha Fetoprotein Pending White Blood Count 5.3 K/UL (4.8-10.8) Red Blood Count 3.39 M/UL (4.20-5.40) L Hemoglobin 8.6 G/DL (12.0-16.0) L Hematocrit 27.0 % (37.0-47.0) L Mean Corpuscular Volume 80 FL (80-99) Mean Corpuscular Hemoglobin 25.4 PG (27.0-31.0) L Mean Corpuscular Hemoglobin Concent 31.8 G/DL (32.0-36.0) L Red Cell Distribution Width 16.0 % (11.6-14.8) H Platelet Count 200 K/UL (150-450) Mean Platelet Volume 5.5 FL (6.5-10.1) L Neutrophils (%) (Auto) 75.8 % (45.0-75.0) H Lymphocytes (%) (Auto) 12.4 % (20.0-45.0) L Monocytes (%) (Auto) 9.3 % (1.0-10.0) Eosinophils (%) (Auto) 1.0 % (0.0-3.0) Basophils (%) (Auto) 1.4 % (0.0-2.0) Activated Partial Thromboplast Time 27 SEC (23-33) 26 SEC (23-33) Sodium Level 139 MMOL/L (136-145) Potassium Level 3.3 MMOL/L (3.5-5.1) L Chloride Level 108 MMOL/L (98-107) H Carbon Dioxide Level 22 MMOL/L (21-32) Anion Gap 9 mmol/L (5-15) Blood Urea Nitrogen 4 mg/dL (7-18) L Creatinine 0.5 MG/DL (0.55-1.30) L Estimat Glomerular Filtration Rate > 60 mL/min (>60) Glucose Level 103 MG/DL (74-106) Calcium Level 6.9 MG/DL (8.5-10.1) L Total Bilirubin 1.6 MG/DL (0.2-1.0) H Direct Bilirubin 0.9 MG/DL (0.0-0.3) H Aspartate Amino Transf (AST/SGOT) 78 U/L (15-37) H Alanine Aminotransferase (ALT/SGPT) 25 U/L (12-78) Alkaline Phosphatase 388 U/L (46-116) H Total Protein 4.9 G/DL (6.4-8.2) L Albumin 1.2 G/DL (3.4-5.0) L Globulin 3.7 g/dL Albumin/Globulin Ratio 0.3 (1.0-2.7) L Prothrombin Time 12.1 SEC (9.30-11.50) H Prothromb Time International Ratio 1.1 (0.9-1.1) Height (Feet): 5 Height (Inches): 2.00 Weight (Pounds): 167 Medications Current Medications Medications (Trade) Dose Ordered Sig/Rita Route PRN Reason Start Time Stop Time Status Last Admin Dose Admin Acetaminophen (Tylenol) 650 mg Q12H PRN ORAL fever (T>100.5F) 04/04/19 08:45 05/03/19 08:44 Barium Sulfate (Readi-Cat 2) 450 ml NOW PRN ORAL Radiology Procedure 04/04/19 08:45 04/05/19 08:31 Ceftriaxone Sodium 1 gm/ Dextrose 55 ml @ 110 mls/hr Q24H IVPB 04/04/19 17:00 04/11/19 16:59 Dextrose (Dextrose 50%) 25 ml Q30MIN PRN IV Hypoglycemia 04/04/19 06:30 05/03/19 07:14 Dextrose (Dextrose 50%) 50 ml Q30MIN PRN IV Hypoglycemia 04/04/19 06:30 05/03/19 07:14 Diphenhydramine HCl (Benadryl) 25 mg Q6H PRN ORAL Itching/Pruritis 04/04/19 07:15 05/03/19 07:14 Folic Acid 1 mg/ Magnesium Sulfate 2000 mg/ Multivitamins 10 ml/Sodium Chloride 1,014.2 ml @ 125 mls/ hr Q24H IV 04/04/19 14:00 05/04/19 13:59 Iopamidol (Isovue-300 100ml) 100 ml NOW PRN INJ Radiology Procedure 04/04/19 08:45 04/05/19 08:44 Lactulose 200 gm/ Sterile Water 125 ml @ 0 mls/hr Q6H IRRIG 04/04/19 10:00 04/05/19 09:59 Metoprolol Tartrate (Lopressor) 12.5 mg Q12HR ORAL 04/04/19 09:00 05/03/19 20:59 04/04/19 09:02 Ondansetron HCl (Zofran) 4 mg Q6H PRN IVP Nausea & Vomiting 04/04/19 07:15 05/03/19 07:14 Pantoprazole (Protonix) 40 mg DAILY IVP 04/04/19 09:00 05/03/19 08:59 04/04/19 09:01 Thiamine HCl 100 mg/Dextrose 56 ml @ 112 mls/hr Q24H IVPB 04/04/19 14:00 05/04/19 13:59 Assessment/Plan Assessment/Plan: Hematology Consultation REQ : Chester Lock [facility]: Ongoing anemia eval DOS: 04/04/[address] Lock to eval for anemia, she is a 48y old female EMS was called by the patient's . Apparently she is been drinking tonight. She fell and hit her head. She has been less responsive. She has a history of liver cirrhosis. Accu-Chek in the field was normal. Also EKG was done that was unremarkable. She is moving all fours but is lethargic. Patient encephalopathic and diffiuclt answering questions. The patient was seen here February 10 after sustaining a scalp laceration after drinking alcohol. CT was negative at that time. The patient eloped after the CAT scan. Allergies: No Known Allergies (Unverified , 02/20/18) Patient History Limited by: medical condition Past Medical History: see triage record, old chart reviewed Social History: Reports: alcohol use Social History Narrative Last Menstrual Period: n/a Reviewed Nursing Documentation: PMH: Agreed; PSxH: Agreed Nursing Documentation-PMH Past Medical History: No History, Except For Hx Hypertension: Yes Review of Systems All Other Systems: limited Physical Exam: Vitals: reviewed General Appearance: NAD HEENT: normocephalic, atraumatic Neck: non-tender, normal alignment Respiratory/Chest: normal breath sounds bilaterally Cardiovascular/Chest: normal peripheral pulses, normal rate Abdomen: normal bowel sounds, soft, nontender Extremities: normal range of motion Neurologic: sensory intact, no Babinski, other - Positive gag, moving all 4, withdraws to painful stimulus, nystagmus Psychiatric: other - Lethargic Labs: noted Imaging: noted Assessment and Recs: # Anemia of chronic disease (or of iron deficiency) due to underlying chronic medical issues, multifactorial --> Anemia workup has been ordered, rule out gi bleed --> No evidence of hemolysis is noted, peripheral smear has been reviewed. --> Hgb goal >7. Transfuse prn. --> Epogen or iron at this time is not particularly indicated --> Medications have been reviewed --> low threshold for gi evaluation in case has occult + --> trend 8.9-->8.6 # Pancreatic mass 9 x 7.7 m, probably hepatic in origin but possibly pancreatic , at the marcela hepatis. This is concerning for neoplasm. Further evaluation with contrast CT is recommended. Coarsened hepatic echogenicity and hepatic surface nodularity, concerning for cirrhotic change. Evidence of portal hypertension, with to and fro flow within the main portal vein, varices, and trace ascites and right kidney mass noted as well. --> will recommend to get a ct of the a/p with iv contrast --> consider f/u in the outpatient office, have given patient our office card # Altered level of consciousness likely due to liver cirrhosis/encephalopathy --> lactulose ordered --> per gi # Elevated troponin --> as per cards # Right pulmonary infiltrate on CXR # Acute alcoholic intoxication --> ativan and dc etoh # Serum ammonia increased --> monitor closely for improvement # Intertrigo # Head contusion # Pleural effusion, right # History of cirrhosis The timing of this note does not necessarily reflect the time of the patient was seen. Greatly appreciate consultation. Vazquez Manriquez MD Apr 04, 2019 15:39
--- NOTE | 2019-04-04 15:42 | NUR ---
*-* INSURANCE *-* ALL CLINICALS AND REVIEWS HAVE BEEN FAXED TO: [facility]#[phone]
--- NOTE | 2019-04-04 15:45 | NUR ---
P.T NOTE: P.T EVALUATION COMPLETED AND TREATMENT INITIATED. PLEASE REFER TO P. T EVALUATION FOR CURRENT FUNCTIONAL STATUS. PATIENT IS ALERT, O X TO SELF, PLACE BUT NOT TO TIME AND SITUATION. PATIENT CONFUSED WHICH REQUIRES CONSTANT CUES DURING FUNCTIONAL MOBILITY TASKS ASSESSMENT. PATIENT IS LIMITED BY GENERALIZED WEAKNESS AND DECREASED ENDURANCE EVIDENCED BY MILS SOB WITH SIMPLE EXERTION. PATIENT CURRENTLY REQUIRES MIN A X 1 FOR BED MOBILITIES AND TRANSFERS ACTIVITIES. PATIENT WAS ABLE TO AMBULATE 10 FEET WITH HAND HELD/MOD A X 1 NEEDED DUE TO UNSTEADY GAIT. SKILLED P.T SERVICE IS WARRANTED TO INCREASE HER STRENGTH ,BALANCE AND ENDURANCE TO INCREASE HER MOBILITY INDEPENDENCE AND SAFETY DURING STAY. PATIENT MY BENEFIT FROM HOME P.T AND FWW DEPENDING ON PROGRESS.
[2019-04-04 16:00] VITALS: BP 158/92
[2019-04-04 16:50] LABS: FERRITIN 46 NG/ML (8-388)
[2019-04-04] MEDS ORDERED: cefTRIAXone 1 GM in D5W 55 ML IVPB SCH (17:00)
[2019-04-04 17:04] LABS: % IRON SATURATION 7 % (15-50); IRON 14 ug/dL (50-175); TOTAL IRON BINDING CAPACITY 212 ug/dL (250-450)
--- NOTE | 2019-04-04 18:30 | NUR ---
NURSE NOTES: Patient pulled IV line. Patient unable to follow commands.
--- NOTE | 2019-04-04 19:30 | NUR ---
HAND-OFF: Report given to Caren Romeo RN.
--- NOTE | 2019-04-04 19:32 | NUR ---
NURSE NOTES: Received a bedside report from GLORIA Griffin.Patient stable,confused,A&O x2,Bahamian speaking,no c/o pain,no respiratory distress noted,tolerated r/air well,pt in a diaper,no IV site,MD aware,bed secured in a low safety position,call light within a reach,will continue to monitor and prepare for D/C as per MD ordered.
--- NOTE | 2019-04-04 20:30 | NUR ---
NURSE NOTES: Pt D/C and went home with ,belongings returned to and he signed the belongings list,pt safety transferred on wheelchair downstair by Anshu SLOAN.
--- NOTE | 2019-04-06 08:19 | Discharge Summary ---
Discharge Summary Discharge Summary _ DATE OF ADMISSION: 04/03/2019 DATE OF DISCHARGE 04/04/2019 DISCHARGED BY: Dr Lock REASON FOR ADMISSION: 48 years old female with past medical history of hypertension, cirrhosis, ETOH abuse, was brought by EMS. Patient apparently had been drinking. Subsequently she fell and hit her head. She became less responsive. called EMS. Accu-Chek in the field was normal. EKG was unremarkable. Patient was moving all extremities , but was lethargic and unable to answer any question. Patient was seen in the ER on February 10 after sustaining a scalp laceration, secondary to drinking alcohol. CT head at that time was negative. Upon evaluation in emergency room patient's vital signs were stable. CT of the head demonstrated no acute hemorrhage, hydrocephalus or mass-effect. Chest x-ray revealed no acute cardiopulmonary pathology and revealed mild cardiomegaly. Moderate right pleural effusion and increased opacity in the right lung , possibly infection, edema or atelectasis. Laboratory work-up revealed no leukocytosis, hemoglobin 8.6, hematocrit 26.5 , platelet count 198. INR 1.3. Sodium 132, stable renal parameters , glucose 107. Ammonia 47. Troponin -0.132. EKG revealed sinus rhythm, no acute ischemic changes. Urinalysis revealed +2 protein , but no evidence of UTI . Serum alcohol level was 447. Serum Tylenol and salicylate levels were negative. Urine toxicology screen was negative. Patient pancultured , started on empiric antibiotic , typed and crossed , and admitted to telemetry floor for further management. CONSULTANTS: recycling tech Dr. Cannon hospitalist Dr. Wilson ID specialist Dr. Hu GI specialist Dr. Sandoval dairy associate/oncologist Dr. Manriquez [facility] COU[facility]SE: Patient admitted to telemetry floor and started on IV fluids with electrolytes and vitamins/banana bag. Serial troponin revealed minimal elevation According to recycling tech, patient had troponin leak. The levels were flat and nonspecific. Patient denies any chest pain. EKG was completely normal. [address] Vendor recommended to keep patient on aspirin and beta-miguel. Echocardiogram revealed preserved ejection fraction of 60 to 65% with mild left ventricular hypertrophy. Small to moderate pleural effusion. No evidence of wall motion abnormality. Right ventricular systolic pressure of 26. Patient was not cooperative for a stress test , given encephalopathy. GI specialist seen and evaluated patient. Patient started on lactulose. Abdominal ultrasound revealed 9 x 7.7 cm mass , probably hepatic in origin , but possibly pancreatic in the marcela hepatis, concerning for neoplasm. Coarsened hepatic echogenicity and hepatic surface nodularity , concerning for cirrhotic changes. Evidence of portal hypertension. Vascular solid mass in the lower pole of right kidney. Oncologist recommended outpatient CT abdomen and pelvis with IV contrast. Follow up with oncologist as outpatient. Alpha-fetoprotein and CEA were ordered and pending at the time of this dictation. Symptomatic treatment provided. Tylenol was minimized. Benzodiazepine stopped. Abdominal ultrasound revealed no evidence of ascites to perform paracentesis. Bowel regimen instituted. Antiemetic provided as needed. GI prophylaxis provided. Patient was able to tolerate diet. AST remain elevated. Upon discharge AST 78, total bilirubin 1.6, direct bilirubin 0.9. Venous duplex bilateral lower extremity revealed no evidence of acute DVT. ID specialist followed. Patient was initially on Zosyn. Zosyn switched to ceftriaxone as per ID specialist recommendation, for possible aspiration pneumonia. Patient remained afebrile no leukocytosis. Blood cultures were negative. According to dairy associate, patient had anemia of chronic disease due to underlying chronic medical issue and iron deficiency. No evidence of hemolysis was noted. Hemoglobin and hematocrit were closely monitored with goal to keep hemoglobin above 7. Prior to discharge hemoglobin 8.6 , hematocrit 27, remained at the same baseline. Platelet count 200. Patient complained about pain in the right leg. X-ray of the right tibia-fibula was unremarkable. Pain management was addressed as needed. Patient's mental status improved. Patient clinically stabilized. Patient remain afebrile, no leukocytosis. Outpatient follow-up with primary care provider for outpatient CT recommended. Patient was counseled on alcohol cessation. Due to rapid improvement in unexpected improvement in patient condition, patient was discharged in 1 day. FINAL DIAGNOSES: Troponin leak Acute alcohol intoxication Cirrhosis Hepatic encephalopathy Alcoholic liver disease Abnormal LFT Anemia of iron deficiency or chronic disease Pancreatic mass 9 x 7.7 cm, probably hepatic in origin but possibly pancreatic, at the marcela hepatis Possible aspiration pneumonia DISCHARGE MEDICATIONS: See Medication Reconciliation list. DISCHARGE INSTRUCTIONS: Patient was discharged home . Follow up with primary care provider in one week. I have been assigned to dictate discharge summary for this account. I was not involved in the patient's management. Liseth Botello NP Apr 06, 2019 08:19
== END 2019-04-04 20:30 | disposition home or self-care (01) | DRG 280 ==
LOC: EDBD 22:56 → EMR 23:15 → 2W 04-03 01:50 → EDBEDREQ 04-03 03:15 → 2E 04-04 05:53
DX: K70.40 Alcoholic hepatic failure without coma (principal); K70.31 Alcoholic cirrhosis of liver with ascites; F10.229 Alcohol dependence with intoxication, unspecified; Y90.8 Blood alcohol level of 240 mg/100 ml or more; D64.9 Anemia, unspecified; R74.8 Abnormal levels of other serum enzymes; I10 Essential (primary) hypertension; D63.8 Anemia in other chronic diseases classified elsewhere; M79.604 Pain in right leg; R16.0 Hepatomegaly, not elsewhere classified; J69.0 Pneumonitis due to inhalation of food and vomit; L30.4 Erythema intertrigo; S00.93XA Contusion of unspecified part of head, initial encounter; W19.XXXA Unspecified fall, initial encounter
CPT/HCPCS: 36415; 70450; 71045; 76700; 80048; 80053; 80307; 80329; 81003; 82105; 82140; 82248; 82378; 82550; 82607; 82728; 82746; 83540; 83550; 83690; 83735; 84100; 84443; 84484; 85007; 85025; 85044; 85060; 85610; 85730; 86900; 86901; 87040; 93005; 93306; 93970; 96360; 96365; 99291; G0378